=== PATIENT | male | born 1965 | race Two or more races ===

== ENCOUNTER 2020-04-20 09:22 | Inpatient (IN) | payer MEDICAID ==
[~2020-04-20] VITALS: Ht 167.6 cm; Wt 83.9 kg
--- NOTE | 2020-04-20 09:19 | Emergency Room Report ---
History of Present Illness General Source: Patient, EMS Present Illness HPI Patient is a 54-year-old male brought in by EMS after increased dizziness and body aches and chills. Patient had been recently dialyzed. Denies any prior history of diabetes. History of end-stage renal disease but does currently make urine. Had prior history of cardiac disease but does not know what medications he takes. Also has hypertension for which he takes Norvasc. Prehospital EKG showed sinus tachycardia with a rate approximately 100.Patient states that he had not previously had any heart attack. Normally is dialyzed Sunday. Reportedly still makes urine. Onset of symptoms while eating at [employer]. Denies any abdominal pain or vomiting. Allergies: Coded Allergies: No Known Allergies (Unverified , 04/20/20) Patient History Past Medical History: see triage record Reviewed Nursing Documentation: PMH: Agreed; PSxH: Agreed Review of Systems All Other Systems: negative except mentioned in HPI Physical Exam Sp02 EP Interpretation: reviewed, normal General Appearance: normal inspection, well appearing, no apparent distress, alert, GCS 15 Head: atraumatic ENT: normal ENT inspection, hearing grossly normal, normal voice Neck: normal inspection, full range of motion, supple, no bony tend Respiratory: normal inspection, lungs clear, normal breath sounds, no respiratory distress, no retraction, no wheezing Cardiovascular #1: regular rate, rhythm, no edema Gastrointestinal: normal inspection, normal bowel sounds, non tender, soft, no guarding, no hernia Genitourinary: no CVA tenderness Musculoskeletal: normal inspection, back normal, normal range of motion Neurologic: alert, motor strength/tone normal, 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 Dif ferential diagnosis include was not limited to volume depletion, electrolyte abnormality, myocardial infarction, among others. Because of complexity of patient's case laboratory tests and imaging studies were ordered. EKG interpreted by me showed normal sinus rhythm with a rate of 80 ST depression in inferior leads no acute ST elevation was noted. Patient was given aspirin. Blood pressure was adequately controlled. Chest x-ray 1 view interpreted by me shows slight cardiomegaly with no definite infiltrate. Patient's coronavirus antigen test was negative.Patient's case was discussed with Dr. Miguel Son for admission due to abnormal EKG findings. Labs Test 04/20/20 09:36 04/20/20 09:40 White Blood Count 11.5 K/UL (4.8-10.8) Red Blood Count 3.56 M/UL (4.70-6.10) Hemoglobin 11.2 G/DL (14.2-18.0) Hematocrit 33.7 % (42.0-52.0) Mean Corpuscular Volume 95 FL (80-99) Mean Corpuscular Hemoglobin 31.4 PG (27.0-31.0) Mean Corpuscular Hemoglobin Concent 33.2 G/DL (32.0-36.0) Red Cell Distribution Width 12.2 % (11.6-14.8) Platelet Count 288 K/UL (150-450) Mean Platelet Volume 6.3 FL (6.5-10.1) Neutrophils (%) (Auto) 79.2 % (45.0-75.0) Lymphocytes (%) (Auto) 10.4 % (20.0-45.0) Monocytes (%) (Auto) 8.6 % (1.0-10.0) Eosinophils (%) (Auto) 1.0 % (0.0-3.0) Basophils (%) (Auto) 0.8 % (0.0-2.0) Prothrombin Time 10.2 SEC (9.30-11.50) Prothromb Time International Ratio 0.9 (0.9-1.1) Activated Partial Thromboplast Time 28 SEC (23-33) Urine Color Pale yellow Urine Appearance Slightly cloudy Urine pH 8 (4.5-8.0) Urine Specific [place] 1.010 (1.005-1.035) Urine Protein 3+ (NEGATIVE) Urine Glucose (UA) 3+ (NEGATIVE) Urine Ketones Negative (NEGATIVE) Urine Blood 2+ (NEGATIVE) Urine Nitrite Negative (NEGATIVE) Urine Bilirubin Negative (NEGATIVE) Urine Urobilinogen Normal MG/DL (0.0-1.0) Urine Leukocyte Esterase 1+ (NEGATIVE) Urine RBC 2-4 /HPF (0 - 0) Urine WBC 10-15 /HPF (0 - 0) Urine Squamous Epithelial Cells Occasional /LPF Urine Bacteria Few /HPF (NONE) Sodium Level 131 MMOL/L (136-145) Potassium Level 3.6 MMOL/L (3.5-5.1) Chloride Level 94 MMOL/L (98-107) Carbon Dioxide Level 26 MMOL/L (21-32) Anion Gap 11 mmol/L (5-15) Blood Urea Nitrogen 32 mg/dL (7-18) Creatinine 7.5 MG/DL (0.55-1.30) Estimat Glomerular Filtration Rate 7.6 mL/min (>60) Glucose Level 119 MG/DL (74-106) Calcium Level 9.3 MG/DL (8.5-10.1) Total Bilirubin 0.3 MG/DL (0.2-1.0) Aspartate Amino Transf (AST/SGOT) 28 U/L (15-37) Alanine Aminotransferase (ALT/SGPT) 40 U/L (12-78) Alkaline Phosphatase 94 U/L (46-116) Troponin I 0.011 ng/mL (0.000-0.056) C-Reactive Protein, Quantitative 1.0 mg/dL (0.00-0.90) Total Protein 8.5 G/DL (6.4-8.2) Albumin 4.6 G/DL (3.4-5.0) Globulin 3.9 g/dL Albumin/Globulin Ratio 1.2 (1.0-2.7) Thyroid Stimulating Hormone (TSH) 2.027 uiU/mL (0.358-3.740) Status: improved Disposition: ADMITTED INPATIENT Condition: Stable Eulogio Duong MD Apr 20, 2020 09:19
[2020-04-20 09:27] VITALS: BP 145/83
--- NOTE | 2020-04-20 09:40 | NUR ---
Patient reported to the ER with c/o not feeling well. He had dialysis Tx completed this morning then proceeded to have breakfast at [employer]. While at restaurant, he reported that he began " not feeling well", called EMS and was brought to the ER for further assessment. Fistula to right upper arm- wrapped. Positive bruit and thrill. AAOX4. Independently ambulatory. Continent of B/B. Urine and blood sample collected and sent to the lab
[2020-04-20 10:06] LABS: BILIRUBIN, URINE NEGATIVE (NEGATIVE); COLOR,URINE PALE YELLOW; GLUCOSE, URINE (UA) 3+ (NEGATIVE); KETONES,URINE NEGATIVE (NEGATIVE); LEUKOCYTE ESTERASE ,URINE 1+ (NEGATIVE); NITRITE,URINE NEGATIVE (NEGATIVE); PH,URINE 8 (4.5-8.0); PROTEIN,URINE 3+ (NEGATIVE); UROBILINOGEN,URINE NORMAL MG/DL (0.0-1.0)
[2020-04-20 10:10] LABS: APPEARANCE,URINE SLIGHTLY CLOUDY
[2020-04-20 10:13] LABS: BASOPHILS % (AUTO) 0.8 % (0.0-2.0); HEMATOCRIT 33.7 % (42.0-52.0); HEMOGLOBIN 11.2 G/DL (14.2-18.0); LYMPHOCYTES % (AUTO) 10.4 % (20.0-45.0); MEAN CORPUSCULAR VOLUME 95 FL (80-99); MONOCYTES % (AUTO) 8.6 % (1.0-10.0); NEUTROPHILS % (AUTO) 79.2 % (45.0-75.0); PLATELET COUNT 288 K/UL (150-450); RED BLOOD COUNT 3.56 M/UL (4.70-6.10); RED CELL DISTRIBUTION WIDTH 12.2 % (11.6-14.8); WHITE BLOOD COUNT 11.5 K/UL (4.8-10.8)
[2020-04-20 10:15] LABS: INR 0.9 (0.9-1.1)
[2020-04-20 10:28] VITALS: BP 145/63
[2020-04-20] MEDS ORDERED: cefTRIAXone 1 GM in NS 55 ML IVPB ONE (10:30)
[2020-04-20 10:37] LABS: ALBUMIN 4.6 G/DL (3.4-5.0); ALBUMIN/GLOBULIN RATIO 1.2 (1.0-2.7); BILIRUBIN,TOTAL 0.3 MG/DL (0.2-1.0); CREATININE 7.5 MG/DL (0.55-1.30); POTASSIUM 3.6 MMOL/L (3.5-5.1)
[2020-04-20 10:57] LABS: CALCIUM 9.3 MG/DL (8.5-10.1)
[2020-04-20 12:45] VITALS: BP 149/81
--- NOTE | 2020-04-20 12:52 | NUR ---
pt nauseous, denies cp, pt medicated. called report to laquita crook. pt stable on cardiac/o2 monitor.
[2020-04-20 13:43] VITALS: BP 157/79
--- NOTE | 2020-04-20 14:49 | Consultation ---
Consult Note Consult Note I am asked to evaluate the patient at the request of Dr. Son for dialysis management Source: Patient, EMS Patient is a 54-year-old male brought in by EMS after increased dizziness and body aches and chills. Patient had been recently dialyzed. Denies any prior history of diabetes. History of end-stage renal disease but does currently make urine. Had prior history of cardiac disease but does not know what medications he takes. Also has hypertension for which he takes Norvasc. Prehospital EKG showed sinus tachycardia with a rate approximately 100.Patient states that he had not previously had any heart attack. Normally is dialyzed Sunday. Reportedly still makes urine. Onset of symptoms while eating at [employer]. Denies any abdominal pain or vomiting. Allergies: No Known Allergies (Unverified , 04/20/20) PHYSICAL EXAMINATION: VITAL SIGNS: Blood pressure 137/83, pulse is 90, respirations 18, and he is afebrile. HEAD AND NECK: Shows no JVD. LUNGS: Clear. CARDIOVASCULAR: Shows regular S1 and S2 with no gallop or murmur. ABDOMEN: Soft. EXTREMITIES: No pitting edema. LABORATORY DATA: Labs show sodium 131, potassium 3.6, BUN of 32, creatinine 7.5, glucose of 119. The most recent laboratories show sodium 135, potassium 5.8. His troponins are negative x2. BNP is 8528. Assessment/Plan UTI ESRD Hypertension Anemia Blood pressure management 2D echocardiogram Antibiotics Dialysis as needed Per orders Braulio Humphrey MD Apr 20, 2020 14:48
--- NOTE | 2020-04-20 14:59 | History and Physical Report ---
DATE OF ADMISSION: 04/20/2020 TIME SEEN: 1 p.m. CONSULTANTS: 1. Edward Silva MD 2. Sundeep Slaughter MD. 3. Braulio Humphrey MD. CHIEF COMPLAINT: Chills, near syncope, UTI, palpitations. BRIEF HISTORY: This is a 54-year-old male who lives at home presented with above-mentioned diagnosis for couple days, came to [facility], diagnosed with above, admitted to telemetry. Currently calm in bed, no complaint. No chest pain. No shortness of breath. No nausea, vomiting, or diarrhea. PAST MEDICAL HISTORY: Include ESRD, hypertension. PAST SURGICAL HISTORY: Shunt. MEDICATIONS: Zofran, ceftriaxone, aspirin. ALLERGIES: Denies. SOCIAL HISTORY: No smoking. No alcohol. No intravenous drug abuse. FAMILY HISTORY: Noncontributory. PHYSICAL EXAMINATION: GENERAL: Calm in bed, oriented x3, no acute distress. VITAL SIGNS: Temperature 98 degrees, pulse 82, respiratory rate 18, blood pressure 149/81. CARDIOVASCULAR: No murmur. LUNGS: Distant and clear. ABDOMEN: Bowel sounds distant. Nontender and nondistended. EXTREMITIES: No cyanosis, clubbing, or edema. NEUROLOGIC: The patient moves all extremities, slightly weak. LABORATORY AND DIAGNOSTIC DATA: Labs at this time show white count 11.5, hemoglobin and hematocrit 11/33, platelets 288. Sodium 131, chloride 94, BUN and creatinine 32/7.5, glucose 119. Troponin 0.011, otherwise normal. BMP, INR 0.9. Urinalysis show 2+ blood, 1+ leukocyte esterase. ASSESSMENT: 1. Chills. 2. Near syncope. 3. Palpitation. 4. Anemia. 5. ESRD. 6. Hyponatremia. 7. UTI. 8. Hypertension. PLAN: 1. Resume home medications. 2. Antibiotics per Infectious Diseases. 3. Troponin q.8h. x3. 4. EKG in a.m. 5. Cardiology, Nephrology, ID followup. 6. CBC and BMP in the morning. 7. We will continue to follow the patient. Miguel Son D.O. DR: Esdras JOB#: [id number] CC:
--- NOTE | 2020-04-20 15:49 | Diagnostic Imaging Report ---
Indication: Shortness of breath Technique: One view of the chest Comparison: none Findings: Inspiration is suboptimal. No definite infiltrates, effusions, or congestion. The heart is borderline enlarged. Impression: No acute process. Borderline cardiomegaly
[2020-04-20 16:00] VITALS: BP 157/91
[2020-04-20] MEDS: Docusate 100mg cap ORAL SCH (17:52)
--- NOTE | 2020-04-20 19:32 | NUR ---
NURSE HAND-OFF REPORT: Important Events on Shift:[New admission. Patient shows no signs of distress] Patient Status: [Full code] Diet: [Renal] Pending Orders: [] Pending Results/Labs:[] Pending MD notification:[] Latest Vital Signs: Temperature 97.3 , Pulse 78 , B/P 157 /91 , Respiratory Rate 20 , O2 SAT 99 , Room Air, O2 Flow Rate . Vital Sign Comment: [] EKG Rhythm: Sinus Rhythm Rhythm change?: N MD Notified?: - MD Response: Latest [place] Fall Score: 20 Fall Risk: Low Risk Safety Measures: Call light Within Reach, Bed Alarm Zone 2, Side Rails Side Rails x2, Bed position Low and Locked. Fall Precautions: Patient Fall Education Report given to [YANDY Aguayo].
--- NOTE | 2020-04-20 19:53 | NUR ---
NURSE NOTES: received patient alert oriented resting comfortable in bed with no signs of distress. assessment initiated. discussed plan of care. call watkins within reach, will continue to monitor.
[2020-04-20 20:00] VITALS: BP 145/82
[2020-04-21] VITALS: BP 132/73
[2020-04-21 04:00] VITALS: BP 130/77
--- NOTE | 2020-04-21 04:00 | NUR ---
NURSE NOTES: patient resting comfortable in bed with no signs of distress. call watkins within reach, will continue to monitor.
[2020-04-21 06:48] LABS: BASOPHILS % (AUTO) 0.9 % (0.0-2.0); EOSINOPHILS % (AUTO) 2.4 % (0.0-3.0); HEMATOCRIT 32.6 % (42.0-52.0); LYMPHOCYTES % (AUTO) 21.3 % (20.0-45.0); MEAN CORPUSCULAR VOLUME 95 FL (80-99); MONOCYTES % (AUTO) 10.7 % (1.0-10.0); NEUTROPHILS % (AUTO) 64.7 % (45.0-75.0); PLATELET COUNT 283 K/UL (150-450); RED BLOOD COUNT 3.42 M/UL (4.70-6.10); RED CELL DISTRIBUTION WIDTH 11.8 % (11.6-14.8); WHITE BLOOD COUNT 8.5 K/UL (4.8-10.8)
--- NOTE | 2020-04-21 06:57 | NUR ---
NURSE HAND-OFF REPORT: Important Events on Shift:[] Patient Status: [] Diet: [] Pending Orders: [] Pending Results/Labs:[] Pending MD notification:[] Latest Vital Signs: Temperature 97.7 , Pulse 70 , B/P 130 /77 , Respiratory Rate 18 , O2 SAT 97 , Room Air, O2 Flow Rate . Vital Sign Comment: [] EKG Rhythm: Sinus Rhythm Rhythm change?: N MD Notified?: - MD Response: Latest [place]ia Fall Score: 20 Fall Risk: Low Risk Safety Measures: Call light Within Reach, Bed Alarm Zone 2, Side Rails Side Rails x2, Bed position Low and Locked. Fall Precautions: Patient Fall Education Report given to [].
[2020-04-21 07:08] LABS: % IRON SATURATION 81 % (15-50); IRON 183 ug/dL (50-175); TOTAL IRON BINDING CAPACITY 225 ug/dL (250-450)
[2020-04-21 07:10] LABS: GAMMA GLUTAMYL TRANSPEPTIDASE 88 U/L (5-85); LACTATE DEHYDROGENASE 181 U/L (81-234); PHOSPHORUS 6.4 MG/DL (2.5-4.9)
[2020-04-21 07:19] LABS: ALANINE AMINOTRANSFERASE 34 U/L (12-78); ALBUMIN 4.1 G/DL (3.4-5.0); ALBUMIN/GLOBULIN RATIO 1.2 (1.0-2.7); ALKALINE PHOSPHATASE 82 U/L (46-116); ANION GAP 9 mmol/L (5-15); ASPARTATE AMINO TRANSFERASE 26 U/L (15-37); BILIRUBIN,TOTAL 0.4 MG/DL (0.2-1.0); BLOOD UREA NITROGEN 57 mg/dL (7-18); CALCIUM 8.5 MG/DL (8.5-10.1); CARBON DIOXIDE 26 MMOL/L (21-32); CHLORIDE 101 MMOL/L (98-107); CHOLESTEROL 109 MG/DL (< 200); FERRITIN 1234 NG/ML (8-388); HDL CHOLESTEROL 40 MG/DL (40-60); POTASSIUM 5.7 MMOL/L (3.5-5.1); SODIUM 135 MMOL/L (136-145); TRIGLYCERIDES 192 MG/DL (30-150)
[2020-04-21 08:22] VITALS: BP 141/78
[2020-04-21] MEDS ORDERED: Sodium Polystyrene Sulfonate 15gm Powder ORAL SCH (08:30)
--- NOTE | 2020-04-21 08:47 | Consultation ---
History of Present Illness General Chief Complaint: General Complaint Reason for Consultation: UTI Present Illness HPI Mr. Fish is a 54 yo male with PMHx of ESRD on HD and HTN who presented to the ED on 04/20/20 with bodyaches and chills. His symptoms are much better today. He reports that he could feel his heart beating and felt as if he was about to fiant. In the ED he was found to have mild leukocytosis of 11. Today WBCs 8. He had a UA concerning for UTI. He denies fever, N/V/D, cough, SOB Dysuria and abdominal pain. ID was consulted for UTI PMHx/PSHx ESRD on HD HTN SocHx No E/T/D FamHx Not Contributory Allergies: Coded Allergies: No Known Allergies (Unverified , 04/20/20) Patient History Healthcare decision maker Resuscitation status Advanced Directive on File Review of Systems ROS Narrative 12 point ROS negative except as noted in the HPI Physical Exam Last 24 Hour Vital Signs Date Time Temp Pulse Resp B/P (MAP) Pulse Ox O2 Delivery O2 Flow Rate FiO2 04/21/20 08:24 74 04/21/20 08:22 96.7 78 20 141/78 (99) 97 04/21/20 04:00 70 04/21/20 04:00 97.7 77 18 130/77 (94) 97 04/21/20 00:00 77 04/21/20 00:00 98.1 83 18 132/73 (92) 96 04/20/20 21:00 Room Air 04/20/20 20:00 82 04/20/20 20:00 98.1 82 18 145/82 (103) 98 04/20/20 16:00 97.3 82 20 157/91 (113) 99 04/20/20 16:00 78 04/20/20 15:36 83 157/79 04/20/20 13:43 98.1 83 18 157/79 (105) 98 04/20/20 13:43 Room Air 04/20/20 13:14 90 04/20/20 12:45 82 18 149/81 100 Room Air 04/20/20 10:28 95 18 145/63 100 Room Air 04/20/20 09:27 91 17 Room Air 100 04/20/20 09:27 98.0 91 17 145/83 100 Room Air 04/20/20 09:16 98.4 110 18 166/97 (120) 98 Room Air Intake and Output 04/20/20 04/21/20 19:00 07:00 Intake Total 200 ml 220 ml Balance 200 ml 220 ml Intake Oral 200 ml 220 ml # Voids 2 6 Laboratory Tests Test 04/20/20 09:36 04/20/20 09:40 04/20/20 13:40 04/21/20 04:00 White Blood Count 11.5 K/UL (4.8-10.8) H Red Blood Count 3.56 M/UL (4.70-6.10) L Hemoglobin 11.2 G/DL (14.2-18.0) L Hematocrit 33.7 % (42.0-52.0) L Mean Corpuscular Volume 95 FL (80-99) Mean Corpuscular Hemoglobin 31.4 PG (27.0-31.0) H Mean Corpuscular Hemoglobin Concent 33.2 G/DL (32.0-36.0) Red Cell Distribution Width 12.2 % (11.6-14.8) Platelet Count 288 K/UL (150-450) Mean Platelet Volume 6.3 FL (6.5-10.1) L Neutrophils (%) (Auto) 79.2 % (45.0-75.0) H Lymphocytes (%) (Auto) 10.4 % (20.0-45.0) L Monocytes (%) (Auto) 8.6 % (1.0-10.0) Eosinophils (%) (Auto) 1.0 % (0.0-3.0) Basophils (%) (Auto) 0.8 % (0.0-2.0) Prothrombin Time 10.2 SEC (9.30-11.50) Prothromb Time International Ratio 0.9 (0.9-1.1) Activated Partial Thromboplast Time 28 SEC (23-33) Urine Color Pale yellow Urine Appearance Slightly cloudy Urine pH 8 (4.5-8.0) Urine Specific [place] 1.010 (1.005-1.035) Urine Protein 3+ (NEGATIVE) H Urine Glucose (UA) 3+ (NEGATIVE) H Urine Ketones Negative (NEGATIVE) Urine Blood 2+ (NEGATIVE) H Urine Nitrite Negative (NEGATIVE) Urine Bilirubin Negative (NEGATIVE) Urine Urobilinogen Normal MG/DL (0.0-1.0) Urine Leukocyte Esterase 1+ (NEGATIVE) H Urine RBC 2-4 /HPF (0 - 0) H Urine WBC 10-15 /HPF (0 - 0) H Urine Squamous Epithelial Cells Occasional /LPF Urine Bacteria Few /HPF (NONE) Sodium Level 131 MMOL/L (136-145) L 135 MMOL/L (136-145) L Potassium Level 3.6 MMOL/L (3.5-5.1) 5.7 MMOL/L (3.5-5.1) #H Chloride Level 94 MMOL/L (98-107) L 101 MMOL/L (98-107) Carbon Dioxide Level 26 MMOL/L (21-32) 26 MMOL/L (21-32) Anion Gap 11 mmol/L (5-15) 9 mmol/L (5-15) Blood Urea Nitrogen 32 mg/dL (7-18) H 57 mg/dL (7-18) H Creatinine 7.5 MG/DL (0.55-1.30) H 11.0 MG/DL (0.55-1.30) H Estimat Glomerular Filtration Rate 7.6 mL/min (>60) 4.9 mL/min (>60) Glucose Level 119 MG/DL (74-106) H 89 MG/DL (74-106) Calcium Level 9.3 MG/DL (8.5-10.1) 8.5 MG/DL (8.5-10.1) Total Bilirubin 0.3 MG/DL (0.2-1.0) 0.4 MG/DL (0.2-1.0) Aspartate Amino Transf (AST/SGOT) 28 U/L (15-37) 26 U/L (15-37) Alanine Aminotransferase (ALT/SGPT) 40 U/L (12-78) 34 U/L (12-78) Alkaline Phosphatase 94 U/L (46-116) 82 U/L (46-116) Troponin I 0.011 ng/mL (0.000-0.056) C-Reactive Protein, Quantitative 1.0 mg/dL (0.00-0.90) H 0.7 mg/dL (0.00-0.90) Total Protein 8.5 G/DL (6.4-8.2) H 7.6 G/DL (6.4-8.2) Albumin 4.6 G/DL (3.4-5.0) 4.1 G/DL (3.4-5.0) Globulin 3.9 g/dL 3.5 g/dL Albumin/Globulin Ratio 1.2 (1.0-2.7) 1.2 (1.0-2.7) Thyroid Stimulating Hormone (TSH) 2.027 uiU/mL (0.358-3.740) POC Whole Blood Glucose Pending Urine Opiates Screen Negative (NEGATIVE) Urine Barbiturates Screen Negative (NEGATIVE) Phencyclidine (PCP) Screen Negative (NEGATIVE) Urine Amphetamines Screen Negative (NEGATIVE) Urine Benzodiazepines Screen Negative (NEGATIVE) Urine Cocaine Screen Negative (NEGATIVE) Urine Marijuana (THC) Screen Negative (NEGATIVE) Hemoglobin A1c 5.6 % (4.3-6.0) Lactic Acid Level 0.80 mmol/L (0.4-2.0) Uric Acid 5.9 MG/DL (2.6-7.2) Phosphorus Level 6.4 MG/DL (2.5-4.9) H Magnesium Level 2.3 MG/DL (1.8-2.4) Iron Level 183 ug/dL (50-175) H Total Iron Binding Capacity 225 ug/dL (250-450) L Percent Iron Saturation 81 % (15-50) H Unsaturated Iron Binding 42 ug/dL (112-346) L Ferritin 1234 NG/ML (8-388) H Gamma Glutamyl Transpeptidase 88 U/L (5-85) H Lactate Dehydrogenase 181 U/L (81-234) Pro-B-Type Natriuretic Peptide 8528 pg/mL (0-125) H Triglycerides Level 192 MG/DL (30-150) H Cholesterol Level 109 MG/DL (< 200) LDL Cholesterol 43 mg/dL (<100) HDL Cholesterol 40 MG/DL (40-60) Cholesterol/HDL Ratio 2.7 (3.3-4.4) L Vitamin B12 Level 545 PG/ML (193-986) Folate 23.1 NG/ML (8.6-58.9) Test 04/21/20 06:15 White Blood Count 8.5 K/UL (4.8-10.8) Red Blood Count 3.42 M/UL (4.70-6.10) L Hemoglobin 11.0 G/DL (14.2-18.0) L Hematocrit 32.6 % (42.0-52.0) L Mean Corpuscular Volume 95 FL (80-99) Mean Corpuscular Hemoglobin 32.2 PG (27.0-31.0) H Mean Corpuscular Hemoglobin Concent 33.7 G/DL (32.0-36.0) Red Cell Distribution Width 11.8 % (11.6-14.8) Platelet Count 283 K/UL (150-450) Mean Platelet Volume 6.1 FL (6.5-10.1) L Neutrophils (%) (Auto) 64.7 % (45.0-75.0) Lymphocytes (%) (Auto) 21.3 % (20.0-45.0) Monocytes (%) (Auto) 10.7 % (1.0-10.0) H Eosinophils (%) (Auto) 2.4 % (0.0-3.0) Basophils (%) (Auto) 0.9 % (0.0-2.0) Microbiology Date/Time Source Procedure Growth Status 04/20/20 09:36 Nasopharynx SARS-CoV-2 Antigen (Rapid)(MIROSLAVA) - Final Complete Height (Feet): 5 Height (Inches): 6.00 Weight (Pounds): 185 Medications Current Medications Medications (Trade) Dose Ordered Sig/Shweta Route PRN Reason Start Time Stop Time Status Last Admin Dose Admin Acetaminophen (Tylenol) 650 mg Q4H PRN ORAL pain 04/20/20 15:00 05/20/20 14:59 Amlodipine Besylate (Norvasc) 10 mg DAILY ORAL 04/20/20 15:00 05/20/20 14:59 04/20/20 15:36 Clonidine HCl (Catapres Tab) 0.1 mg Q4H PRN ORAL For BP over 160 systolic 04/20/20 15:00 07/19/20 14:59 Docusate Sodium (Colace) 100 mg THREE TIMES A DAY ORAL 04/20/20 18:00 05/20/20 17:59 04/20/20 17:52 Ondansetron HCl (Zofran) 4 mg Q6H PRN IVP Nausea & Vomiting 04/20/20 15:00 05/20/20 14:59 Pantoprazole (Protonix) 40 mg EVERY 12 HOURS ORAL 04/20/20 21:00 05/20/20 20:59 04/20/20 20:58 Sodium Polystyrene Sulfonate (Kayexalate) 30 gm ONCE ORAL 04/21/20 08:30 04/21/20 10:00 Objective Narrative Gen: NAD HEENT: NCAT, MMM, EOMI, No scleral icterus NECK Supple, No LAD HEART: RRR, S1, S2, Left arm AVF (Intact, No E/P) Pulm: CTAB, No W No accessory mescle use Abd: Soft, NT, ND, + BS : Differed Neuro: Awake, Alert, Moving arms and legs SKIN: Exposed skin normal in color no rash noted Assessment/Plan Assessment/Plan: 54 yo male with PMHx of ESRD on HD and HTN who presented to the ED on 04/20/20 with bodyaches and chills. Sepsis UTI Leukocytosis No fever ESRD on HD HTN PLAN - Continue Ceftriaxone #2/3 - f/u Cultures - Monitor CBC and Temps Thank you for this consult. [facility] will continue to follow Mr. Fish with you dueing this hospitalization. Wale Junior MD Apr 21, 2020 08:47
[2020-04-21] MEDS: Docusate 100mg cap ORAL SCH ×3 (09:16→18:00)
--- NOTE | 2020-04-21 09:47 | General Progress Note ---
Subjective Constitutional: Reports: weakness Allergies: Coded Allergies: No Known Allergies (Unverified , 04/20/20) All Systems: reviewed and negative except above Subjective calm in bed Objective Last 24 Hour Vital Signs Date Time Temp Pulse Resp B/P (MAP) Pulse Ox O2 Delivery O2 Flow Rate FiO2 04/21/20 09:17 78 141/79 04/21/20 08:24 74 04/21/20 08:22 96.7 78 20 141/78 (99) 97 04/21/20 04:00 70 04/21/20 04:00 97.7 77 18 130/77 (94) 97 04/21/20 00:00 77 04/21/20 00:00 98.1 83 18 132/73 (92) 96 04/20/20 21:00 Room Air 04/20/20 20:00 82 04/20/20 20:00 98.1 82 18 145/82 (103) 98 04/20/20 16:00 97.3 82 20 157/91 (113) 99 04/20/20 16:00 78 04/20/20 15:36 83 157/79 04/20/20 13:43 98.1 83 18 157/79 (105) 98 04/20/20 13:43 Room Air 04/20/20 13:14 90 04/20/20 12:45 82 18 149/81 100 Room Air 04/20/20 10:28 95 18 145/63 100 Room Air Intake and Output 04/20/20 04/21/20 19:00 07:00 Intake Total 200 ml 220 ml Balance 200 ml 220 ml Intake Oral 200 ml 220 ml # Voids 2 6 Laboratory Tests 04/20/20 13:40: Urine Opiates Screen Negative, Urine Barbiturates Screen Negative, Phencyclidine (PCP) Screen Negative, Urine Amphetamines Screen Negative, Urine Benzodiazepines Screen Negative, Urine Cocaine Screen Negative, Urine Marijuana (THC) Screen Negative 04/21/20 04:00: Sodium Level 135L, Potassium Level 5.7#H, Chloride Level 101, Carbon Dioxide Level 26, Anion Gap 9, Blood Urea Nitrogen 57H, Creatinine 11.0H, Estimat Glomerular Filtration Rate 4.9, Glucose Level 89, Hemoglobin A1c 5.6, Lactic Acid Level 0.80, Uric Acid 5.9, Calcium Level 8.5, Phosphorus Level 6.4H, Magnesium Level 2.3, Iron Level 183H, Total Iron Binding Capacity 225L, Percent Iron Saturation 81H, Unsaturated Iron Binding 42L, Ferritin 1234H, Total Bilirubin 0.4, Gamma Glutamyl Transpeptidase 88H, Aspartate Amino Transf (AST/SGOT) 26, Alanine Aminotransferase (ALT/SGPT) 34, Alkaline Phosphatase 82, Lactate Dehydrogenase 181, C-Reactive Protein, Quantitative 0.7, Pro-B-Type Natriuretic Peptide 8528H, Total Protein 7.6, Albumin 4.1, Globulin 3.5, Albumin/Globulin Ratio 1.2, Triglycerides Level 192H, Cholesterol Level 109, LDL Cholesterol 43, HDL Cholesterol 40, Cholesterol/HDL Ratio 2.7L, Vitamin B12 Level 545, Folate 23.1 04/21/20 06:15: White Blood Count 8.5, Red Blood Count 3.42L, Hemoglobin 11.0L, Hematocrit 32.6L , Mean Corpuscular Volume 95, Mean Corpuscular Hemoglobin 32.2H, Mean Corpuscular Hemoglobin Concent 33.7, Red Cell Distribution Width 11.8, Platelet Count 283, Mean Platelet Volume 6.1L, Neutrophils (%) (Auto) 64.7, Lymphocytes (%) (Auto) 21.3, Monocytes (%) (Auto) 10.7H, Eosinophils (%) (Auto) 2.4, Basophils (%) (Auto) 0.9 Height (Feet): 5 Height (Inches): 6.00 Weight (Pounds): 185 General Appearance: lethargic EENT: normal ENT inspection Neck: normal alignment Cardiovascular: normal peripheral pulses, normal rate, regular rhythm Respiratory/Chest: chest wall non-tender, lungs clear, normal breath sounds Abdomen: normal bowel sounds, non tender, soft Extremities: normal inspection Edema: no edema noted Arm (L), no edema noted Arm (R), no edema noted Leg (L), no edema noted Leg (R), no edema noted Pedal (L), no edema noted Pedal (R), no edema noted Generalized Neurologic: responsive, motor weakness Skin: normal pigmentation, warm/dry Assessment/Plan Problem List: (1) ESRD (end stage renal disease) ICD Codes: N18.6 - End stage renal disease SNOMED: 94239238 (2) Anemia ICD Codes: D64.9 - Anemia, unspecified SNOMED: 169084373 (3) HTN (hypertension) ICD Codes: I10 - Essential (primary) hypertension SNOMED: 81286452 (4) Urinary tract infection ICD Codes: N39.0 - Urinary tract infection, site not specified SNOMED: 22248728 (5) Weakness ICD Codes: R53.1 - Weakness SNOMED: 64226682 Status: unchanged Assessment/Plan: pt diet abx dialysis cbc bmp am Miguel Son DO Apr 21, 2020 09:47
--- NOTE | 2020-04-21 10:06 | NUR ---
Received report from credit risk officer RN. Pt. in bed, awake alert oriented, [place] speaking, able to communicate needs. call light w/in reach, instructed to call if needed assistance. will continue to monitor.
[2020-04-21] MEDS ORDERED: ISOSORBIDE MONO30 M1 PO (10:08)
[2020-04-21] MEDS ORDERED: CALCIUM ACETAT667 M1 PO (10:08)
[2020-04-21] MEDS ORDERED: RENA-VITE RX T1 EAC1 PO (10:08)
[2020-04-21] MEDS ORDERED: AMLODIPINE BESY10 MG ORAL (10:08)
[2020-04-21] MEDS ORDERED: ATORVASTATIN CA20 MG ORAL (10:08)
--- NOTE | 2020-04-21 10:20 | Nephrology Progress Note ---
Assessment/Plan Problem List: (1) ESRD (end stage renal disease) (2) HTN (hypertension) (3) Urinary tract infection (4) Anemia Assessment UTI ESRD Hypertension Anemia Plan April 21: Patient seen. Labs reviewed. Potassium 5.7. Kayexalate given. Patient receives dialysis Sunday however dialysis for today is ordered. Blood pressure appears to be under control. Continue per consultants. Blood pressure management 2D echocardiogram Antibiotics Dialysis as needed Per orders Subjective ROS Limited/Unobtainable: No Constitutional: Reports: malaise Objective Objective Last 24 Hour Vital Signs Date Time Temp Pulse Resp B/P (MAP) Pulse Ox O2 Delivery O2 Flow Rate FiO2 04/21/20 10:00 Room Air 04/21/20 09:17 78 141/79 04/21/20 08:24 74 04/21/20 08:22 96.7 78 20 141/78 (99) 97 04/21/20 04:00 70 04/21/20 04:00 97.7 77 18 130/77 (94) 97 04/21/20 00:00 77 04/21/20 00:00 98.1 83 18 132/73 (92) 96 04/20/20 21:00 Room Air 04/20/20 20:00 82 04/20/20 20:00 98.1 82 18 145/82 (103) 98 04/20/20 16:00 97.3 82 20 157/91 (113) 99 04/20/20 16:00 78 04/20/20 15:36 83 157/79 04/20/20 13:43 98.1 83 18 157/79 (105) 98 04/20/20 13:43 Room Air 04/20/20 13:14 90 04/20/20 12:45 82 18 149/81 100 Room Air 04/20/20 10:28 95 18 145/63 100 Room Air Intake and Output 04/20/20 04/21/20 19:00 07:00 Intake Total 200 ml 220 ml Balance 200 ml 220 ml Intake Oral 200 ml 220 ml # Voids 2 6 Current Medications Medications (Trade) Dose Ordered Sig/Shweta Route PRN Reason Start Time Stop Time Status Last Admin Dose Admin Acetaminophen (Tylenol) 650 mg Q4H PRN ORAL pain 04/20/20 15:00 05/20/20 14:59 Amlodipine Besylate (Norvasc) 10 mg DAILY ORAL 04/20/20 15:00 05/20/20 14:59 04/21/20 09:17 Clonidine HCl (Catapres Tab) 0.1 mg Q4H PRN ORAL For BP over 160 systolic 04/20/20 15:00 07/19/20 14:59 Docusate Sodium (Colace) 100 mg THREE TIMES A DAY ORAL 04/20/20 18:00 05/20/20 17:59 04/21/20 09:16 Ondansetron HCl (Zofran) 4 mg Q6H PRN IVP Nausea & Vomiting 04/20/20 15:00 05/20/20 14:59 Pantoprazole (Protonix) 40 mg EVERY 12 HOURS ORAL 04/20/20 21:00 05/20/20 20:59 04/21/20 09:16 Laboratory Tests 04/20/20 13:40: Urine Opiates Screen Negative, Urine Barbiturates Screen Negative, Phencyclidine (PCP) Screen Negative, Urine Amphetamines Screen Negative, Urine Benzodiazepines Screen Negative, Urine Cocaine Screen Negative, Urine Marijuana (THC) Screen Negative 04/21/20 04:00: Sodium Level 135L, Potassium Level 5.7#H, Chloride Level 101, Carbon Dioxide Level 26, Anion Gap 9, Blood Urea Nitrogen 57H, Creatinine 11.0H, Estimat Glomerular Filtration Rate 4.9, Glucose Level 89, Hemoglobin A1c 5.6, Lactic Acid Level 0.80, Uric Acid 5.9, Calcium Level 8.5, Phosphorus Level 6.4H, Magnesium Level 2.3, Iron Level 183H, Total Iron Binding Capacity 225L, Percent Iron Saturation 81H, Unsaturated Iron Binding 42L, Ferritin 1234H, Total Bilirubin 0.4, Gamma Glutamyl Transpeptidase 88H, Aspartate Amino Transf (AST/SGOT) 26, Alanine Aminotransferase (ALT/SGPT) 34, Alkaline Phosphatase 82, Lactate Dehydrogenase 181, C-Reactive Protein, Quantitative 0.7, Pro-B-Type Natriuretic Peptide 8528H, Total Protein 7.6, Albumin 4.1, Globulin 3.5, Albumin/Globulin Ratio 1.2, Triglycerides Level 192H, Cholesterol Level 109, LDL Cholesterol 43, HDL Cholesterol 40, Cholesterol/HDL Ratio 2.7L, Vitamin B12 Level 545, Folate 23.1 04/21/20 06:15: White Blood Count 8.5, Red Blood Count 3.42L, Hemoglobin 11.0L, Hematocrit 32.6L , Mean Corpuscular Volume 95, Mean Corpuscular Hemoglobin 32.2H, Mean Corpu scular Hemoglobin Concent 33.7, Red Cell Distribution Width 11.8, Platelet Count 283, Mean Platelet Volume 6.1L, Neutrophils (%) (Auto) 64.7, Lymphocytes (%) (Auto) 21.3, Monocytes (%) (Auto) 10.7H, Eosinophils (%) (Auto) 2.4, Basophils (%) (Auto) 0.9 Height (Feet): 5 Height (Inches): 6.00 Weight (Pounds): 185 General Appearance: no apparent distress Cardiovascular: normal rate Respiratory/Chest: decreased breath sounds Abdomen: distended Extremities: other - Has left upper arm fistula Braulio Humphrey MD Apr 21, 2020 10:20
--- NOTE | 2020-04-21 11:05 | NUR ---
PT EVALUATION/DISCHARGE NOTE Patient seen for initial evaluation. Patient is independent with bed mobility, transfers and ambulation without an assistive device. Skilled inpatient PT intervention not warranted as patient is at baseline level of function and is independent with all ADLs. Patient discharged from PT, Yany KEBEDE notified. Addendum: 04/21/20 at 1313 by DUNCAN BRASHER PT Amended: Links added.
[2020-04-21 12:00] VITALS: BP 140/82
[2020-04-21] MEDS: cefTRIAXone 1 GM in D5W 55 ML IVPB SCH (12:09)
[2020-04-21 16:39] VITALS: BP 137/69
--- NOTE | 2020-04-21 16:40 | NUR ---
Patient made aware Md. ordered HD for today. consent signed. B/P stable. denies any complaints. denies chest pain.
--- NOTE | 2020-04-21 18:21 | NUR ---
Patient refused to take colace, already having diarrhea from Kayexalate.
--- NOTE | 2020-04-21 18:23 | NUR ---
HD nurse Won will be in at 11pm for dialysis tonite. consent signed by patient.
--- NOTE | 2020-04-21 19:45 | NUR ---
NURSE NOTES: received patient resting comfortable in bed. assessment initiated. patient show no signs of distress. discussed plan of care. per day RN, dialysis nurse will come tonight for patient. call watkins within reach, will continue to monitor.
--- NOTE | 2020-04-21 19:53 | NUR ---
NURSE NOTES: snacks given to patient.
[2020-04-21 20:00] VITALS: BP 152/89
[2020-04-22] VITALS: BP 157/91
--- NOTE | 2020-04-22 02:00 | NUR ---
NURSE NOTES: patient resting comfortable in bed receiving dialysis. no signs of distress. call watkins within reach, will continue to monitor. dialysis nurse at bedside.
[2020-04-22 04:00] VITALS: BP 151/84
[2020-04-22 06:44] LABS: BASOPHILS % (AUTO) 4.6 % (0.0-2.0); HEMOGLOBIN 10.7 G/DL (14.2-18.0); LYMPHOCYTES % (AUTO) 8.9 % (20.0-45.0); MEAN CORPUSCULAR VOLUME 98 FL (80-99); MONOCYTES % (AUTO) 5.6 % (1.0-10.0); NEUTROPHILS % (AUTO) 79.9 % (45.0-75.0); PLATELET COUNT 314 K/UL (150-450); RED BLOOD COUNT 3.37 M/UL (4.70-6.10); RED CELL DISTRIBUTION WIDTH 12.9 % (11.6-14.8); WHITE BLOOD COUNT 12.5 K/UL (4.8-10.8)
[2020-04-22 06:49] LABS: ALBUMIN 4.2 G/DL (3.4-5.0); ALBUMIN/GLOBULIN RATIO 1.3 (1.0-2.7); BILIRUBIN,TOTAL 0.2 MG/DL (0.2-1.0); CALCIUM 8.3 MG/DL (8.5-10.1); CREATININE 10.8 MG/DL (0.55-1.30); PHOSPHORUS 6.6 MG/DL (2.5-4.9); POTASSIUM 5.8 MMOL/L (3.5-5.1)
--- NOTE | 2020-04-22 07:23 | NUR ---
NURSE HAND-OFF REPORT: Important Events on Shift:[] Patient Status: [] Diet: [] Pending Orders: [] Pending Results/Labs:[] Pending MD notification:[] Latest Vital Signs: Temperature 98.1 , Pulse 82 , B/P 151 /84 , Respiratory Rate 20 , O2 SAT 100 , Room Air, O2 Flow Rate . Vital Sign Comment: [] EKG Rhythm: Sinus Rhythm Rhythm change?: N MD Notified?: - MD Response: Latest Urrutia Fall Score: 20 Fall Risk: Low Risk Safety Measures: Call light Within Reach, Bed Alarm Zone 2, Side Rails Side Rails x2, Bed position Low and Locked. Fall Precautions: Patient Fall Education Report given to [].
--- NOTE | 2020-04-22 07:31 | NUR ---
NURSE NOTES: The patient is alert and oriented x4 and doesn't appear to be in any active distress at this time.The Resp is even and unlabored and he is able to ambulate to the bathroom with a steady gait.The patient had dialysis early this morning and 2 liters of fluids was taken out well tolerated. Patient had a left upper arm fistular, Bruit and thrill both positive on assessment.The peripheral IV on the Left hand is intact and asymptomatic. Will continue to monitor
[2020-04-22 08:00] VITALS: BP 145/77
[2020-04-22] MEDS: Docusate 100mg cap ORAL SCH ×3 (08:52→17:33)
[2020-04-22] MEDS ORDERED: Sodium Polystyrene Sulfonate 15gm Powder ORAL SCH ×2 (09:00→17:00)
--- NOTE | 2020-04-22 09:05 | NUR ---
RD ASSESSMENT & RECOMMENDATIONS SEE CARE ACTIVITY FOR COMPLETE ASSESSMENT DAILY ESTIMATED NEEDS: Needs based on ESRD on HD 71kg abw 25-30 kcals/kg 1848-8126 total kcals 1.2-1.8 g protein/kg 85-128 g total protein Fluid per MD, on HD NUTRITION DIAGNOSIS: Increased pro needs r/t renal dysfunction as evidenced by ESRD on HD. CURRENT DIET:Renal diet PO DIET RECOMMENDATIONS: Maintain Renal diet ADDITIONAL RECOMMENDATIONS: 1) Obtain a standing weight as able 2) Add NEPRO 1 tetra qdaily (19g pro) 3) Accuchecks, BG monitoring
[2020-04-22] MEDS: cefTRIAXone 1 GM in D5W 55 ML IVPB SCH (11:31)
[2020-04-22 12:00] VITALS: BP 148/74
--- NOTE | 2020-04-22 12:38 | Nephrology Progress Note ---
Assessment/Plan Problem List: (1) ESRD (end stage renal disease) (2) HTN (hypertension) (3) Urinary tract infection (4) Anemia Assessment UTI ESRD Hypertension Anemia Plan April 22: Will order dialysis again tomorrow. Labs reviewed. Potassium 5.8. Kayexalate ordered. Blood pressure medication adjusted. Continue per consultants. April 21: Patient seen. Labs reviewed. Potassium 5.7. Kayexalate given. Patient receives dialysis Sunday however dialysis for today is ordered. Blood pressure appears to be under control. Continue per co nsultants. Blood pressure management 2D echocardiogram Antibiotics Dialysis as needed Per orders Subjective ROS Limited/Unobtainable: No Constitutional: Reports: malaise Objective Objective Last 24 Hour Vital Signs Date Time Temp Pulse Resp B/P (MAP) Pulse Ox O2 Delivery O2 Flow Rate FiO2 04/22/20 12:00 98.0 76 18 148/74 (98) 99 04/22/20 12:00 73 04/22/20 09:00 Room Air 04/22/20 08:52 74 145/77 04/22/20 08:00 82 04/22/20 08:00 98.2 74 17 145/77 (99) 99 04/22/20 04:00 82 04/22/20 04:00 98.1 78 20 151/84 (106) 100 04/22/20 00:00 97.9 83 20 157/91 (113) 100 04/21/20 21:00 Room Air 04/21/20 20:00 97.7 78 20 152/89 (110) 98 04/21/20 20:00 80 04/21/20 16:39 96.8 71 21 137/69 (91) 96 04/21/20 16:16 71 Intake and Output 04/21/20 04/22/20 19:00 07:00 Intake Total 120 ml 460 ml Output Total 1400 ml 2000 ml Balance -1280 ml -1540 ml Intake Oral 120 ml 460 ml Output Urine Total 1400 ml Hemodialysis UF 2000 ml # Voids 3 Current Medications Medications (Trade) Dose Ordered Sig/Shweta Route PRN Reason Start Time Stop Time Status Last Admin Dose Admin Acetaminophen (Tylenol) 650 mg Q4H PRN ORAL pain 04/20/20 15:00 05/20/20 14:59 Amlodipine Besylate (Norvasc) 10 mg DAILY ORAL 04/20/20 15:00 05/20/20 14:59 04/22/20 08:52 Ceftriaxone Sodium 1 gm/ Dextrose 55 ml @ 110 mls/hr Q24H IVPB 04/21/20 11:00 04/28/20 10:59 04/22/20 11:31 Clonidine HCl (Catapres Tab) 0.1 mg Q4H PRN ORAL For BP over 160 systolic 04/20/20 15:00 07/19/20 14:59 Clonidine HCl (Catapres Tab) 0.1 mg Q4H PRN ORAL BP over 160 systolic 04/22/20 12:45 07/21/20 12:44 UNV Docusate Sodium (Colace) 100 mg THREE TIMES A DAY ORAL 04/20/20 18:00 05/20/20 17:59 04/22/20 08:52 Metoclopramide HCl (Reglan) 5 mg THREE TIMES A DAY ORAL 04/22/20 13:00 05/22/20 12:59 UNV Ondansetron HCl (Zofran) 4 mg Q6H PRN IVP Nausea & Vomiting 04/20/20 15:00 05/20/20 14:59 Pantoprazole (Protonix) 40 mg EVERY 12 HOURS ORAL 04/20/20 21:00 05/20/20 20:59 04/22/20 08:52 Sodium Polystyrene Sulfonate (Kayexalate) 30 gm ONCE ONCE ORAL 04/22/20 17:00 04/22/20 17:01 UNV Laboratory Tests 04/22/20 05:25: White Blood Count 12.5H, Red Blood Count 3.37L, Hemoglobin 10.7L, Hematocrit 33.0L, Mean Corpuscular Volume 98, Mean Corpuscular Hemoglobin 31.9H, Mean Corpuscular Hemoglobin Concent 32.6, Red Cell Distribution Width 12.9, Platelet Count 314, Mean Platelet Volume 5.7L, Neutrophils (%) (Auto) 79.9H, Lymphocytes (%) (Auto) 8.9L, Monocytes (%) (Auto) 5.6, Eosinophils (%) (Auto) 1.0, Basophils (%) (Auto) 4.6H, Sodium Level 135L, Potassium Level 5.8H, Chloride Level 97L, Carbon Dioxide Level 19L, Anion Gap 19H, Blood Urea Nitrogen 61H, Creatinine 10.8H, Estimat Glomerular Filtration Rate 5.0, Glucose Level 77, Calcium Level 8.3L, Phosphorus Level 6.6H, Total Bilirubin 0.2, Aspartate Amino Transf (AST/SGOT) 31, Alanine Aminotransferase (ALT/SGPT) 38, Alkaline Phosphatase 82, C-Reactive Protein, Quantitative 1.0H, Total Protein 7.5, Albumin 4.2, Globulin 3.3, Albumin/Globulin Ratio 1.3 Height (Feet): 5 Height (Inches): 6.00 Weight (Pounds): 185 Cardiovascular: normal rate Respiratory/Chest: lungs clear Abdomen: soft Braulio Humphrey MD Apr 22, 2020 12:38
--- NOTE | 2020-04-22 12:47 | Infectious Diseases Prog Note ---
Assessment/Plan 54 yo male with PMHx of ESRD on HD and HTN who presented to the ED on 04/20/20 with bodyaches and chills. Sepsis UTI UA (+) UCx 04/20/20 - NGTD Leukocytosis No fever ESRD on HD HTN PLAN - Continue Ceftriaxone #04/21 Abx to stop today - f/u Cultures - Monitor CBC and Temps Thank you for this consult. [facility] will continue to follow Mr. Fish with you dueing this hospitalization. Subjective Allergies: Coded Allergies: No Known Allergies (Unverified , 04/20/20) Afebrile Mild leukocytosis Report feeling well Objective Last 24 Hour Vital Signs Date Time Temp Pulse Resp B/P (MAP) Pulse Ox O2 Delivery O2 Flow Rate FiO2 04/22/20 12:00 98.0 76 18 148/74 (98) 99 04/22/20 12:00 73 04/22/20 09:00 Room Air 04/22/20 08:52 74 145/77 04/22/20 08:00 82 04/22/20 08:00 98.2 74 17 145/77 (99) 99 04/22/20 04:00 82 04/22/20 04:00 98.1 78 20 151/84 (106) 100 04/22/20 00:00 97.9 83 20 157/91 (113) 100 04/21/20 21:00 Room Air 04/21/20 20:00 97.7 78 20 152/89 (110) 98 04/21/20 20:00 80 04/21/20 16:39 96.8 71 21 137/69 (91) 96 04/21/20 16:16 71 Height (Feet): 5 Height (Inches): 6.00 Weight (Pounds): 185 Gen: NAD HEENT: NCAT, MMM, EOMI, No scleral icterus Pulm: RRR, No accessory mescle use Abd: Soft, ND Microbiology Date/Time Source Procedure Growth Status 04/20/20 09:36 Urine,Clean Catch Urine Culture - Final NO GROWTH AFTER 48 HOURS Complete 04/20/20 09:36 Nasopharynx SARS-CoV-2 Antigen (Rapid)(MIROSLAVA) - Final Complete Laboratory Tests Test 04/22/20 05:25 White Blood Count 12.5 K/UL (4.8-10.8) H Red Blood Count 3.37 M/UL (4.70-6.10) L Hemoglobin 10.7 G/DL (14.2-18.0) L Hematocrit 33.0 % (42.0-52.0) L Mean Corpuscular Volume 98 FL (80-99) Mean Corpuscular Hemoglobin 31.9 PG (27.0-31.0) H Mean Corpuscular Hemoglobin Concent 32.6 G/DL (32.0-36.0) Red Cell Distribution Width 12.9 % (11.6-14.8) Platelet Count 314 K/UL (150-450) Mean Platelet Volume 5.7 FL (6.5-10.1) L Neutrophils (%) (Auto) 79.9 % (45.0-75.0) H Lymphocytes (%) (Auto) 8.9 % (20.0-45.0) L Monocytes (%) (Auto) 5.6 % (1.0-10.0) Eosinophils (%) (Auto) 1.0 % (0.0-3.0) Basophils (%) (Auto) 4.6 % (0.0-2.0) H Sodium Level 135 MMOL/L (136-145) L Potassium Level 5.8 MMOL/L (3.5-5.1) H Chloride Level 97 MMOL/L (98-107) L Carbon Dioxide Level 19 MMOL/L (21-32) L Anion Gap 19 mmol/L (5-15) H Blood Urea Nitrogen 61 mg/dL (7-18) H Creatinine 10.8 MG/DL (0.55-1.30) H Estimat Glomerular Filtration Rate 5.0 mL/min (>60) Glucose Level 77 MG/DL (74-106) Calcium Level 8.3 MG/DL (8.5-10.1) L Phosphorus Level 6.6 MG/DL (2.5-4.9) H Total Bilirubin 0.2 MG/DL (0.2-1.0) Aspartate Amino Transf (AST/SGOT) 31 U/L (15-37) Alanine Aminotransferase (ALT/SGPT) 38 U/L (12-78) Alkaline Phosphatase 82 U/L (46-116) C-Reactive Protein, Quantitative 1.0 mg/dL (0.00-0.90) H Total Protein 7.5 G/DL (6.4-8.2) Albumin 4.2 G/DL (3.4-5.0) Globulin 3.3 g/dL Albumin/Globulin Ratio 1.3 (1.0-2.7) Current Medications Medications (Trade) Dose Ordered Sig/Shweta Route PRN Reason Start Time Stop Time Status Last Admin Dose Admin Acetaminophen (Tylenol) 650 mg Q4H PRN ORAL pain 04/20/20 15:00 05/20/20 14:59 Amlodipine Besylate (Norvasc) 10 mg DAILY ORAL 04/20/20 15:00 05/20/20 14:59 04/22/20 08:52 Ceftriaxone Sodium 1 gm/ Dextrose 55 ml @ 110 mls/hr Q24H IVPB 04/21/20 11:00 04/28/20 10:59 04/22/20 11:31 Clonidine HCl (Catapres Tab) 0.1 mg Q4H PRN ORAL For BP over 160 systolic 04/20/20 15:00 07/19/20 14:59 Clonidine HCl (Catapres Tab) 0.1 mg Q4H PRN ORAL BP over 160 systolic 04/22/20 12:45 07/21/20 12:44 UNV Docusate Sodium (Colace) 100 mg THREE TIMES A DAY ORAL 04/20/20 18:00 05/20/20 17:59 04/22/20 08:52 Metoclopramide HCl (Reglan) 5 mg THREE TIMES A DAY ORAL 04/22/20 13:00 05/22/20 12:59 UNV Ondansetron HCl (Zofran) 4 mg Q6H PRN IVP Nausea & Vomiting 04/20/20 15:00 05/20/20 14:59 Pantoprazole (Protonix) 40 mg EVERY 12 HOURS ORAL 04/20/20 21:00 05/20/20 20:59 04/22/20 08:52 Sodium Polystyrene Sulfonate (Kayexalate) 30 gm ONCE ORAL 04/22/20 17:00 04/22/20 19:00 Wale Junior MD Apr 22, 2020 12:47
--- NOTE | 2020-04-22 13:30 | General Progress Note ---
Subjective Constitutional: Reports: weakness Allergies: Coded Allergies: No Known Allergies (Unverified , 04/20/20) All Systems: reviewed and negative except above Subjective sleepycalm in bed Objective Last 24 Hour Vital Signs Date Time Temp Pulse Resp B/P (MAP) Pulse Ox O2 Delivery O2 Flow Rate FiO2 04/22/20 12:00 98.0 76 18 148/74 (98) 99 04/22/20 12:00 73 04/22/20 09:00 Room Air 04/22/20 08:52 74 145/77 04/22/20 08:00 82 04/22/20 08:00 98.2 74 17 145/77 (99) 99 04/22/20 04:00 82 04/22/20 04:00 98.1 78 20 151/84 (106) 100 04/22/20 00:00 97.9 83 20 157/91 (113) 100 04/21/20 21:00 Room Air 04/21/20 20:00 97.7 78 20 152/89 (110) 98 04/21/20 20:00 80 04/21/20 16:39 96.8 71 21 137/69 (91) 96 04/21/20 16:16 71 Intake and Output 04/21/20 04/22/20 19:00 07:00 Intake Total 120 ml 460 ml Output Total 1400 ml 2000 ml Balance -1280 ml -1540 ml Intake Oral 120 ml 460 ml Output Urine Total 1400 ml Hemodialysis UF 2000 ml # Voids 3 Laboratory Tests 04/22/20 05:25: White Blood Count 12.5H, Red Blood Count 3.37L, Hemoglobin 10.7L, Hematocrit 33.0L, Mean Corpuscular Volume 98, Mean Corpuscular Hemoglobin 31.9H, Mean Corpuscular Hemoglobin Concent 32.6, Red Cell Distribution Width 12.9, Platelet Count 314, Mean Platelet Volume 5.7L, Neutrophils (%) (Auto) 79.9H, Lymphocytes (%) (Auto) 8.9L, Monocytes (%) (Auto) 5.6, Eosinophils (%) (Auto) 1.0, Basophils (%) (Auto) 4.6H, Sodium Level 135L, Potassium Level 5.8H, Chloride Level 97L, Carbon Dioxide Level 19L, Anion Gap 19H, Blood Urea Nitrogen 61H, Creatinine 10.8H, Estimat Glomerular Filtration Rate 5.0, Glucose Level 77, Calcium Level 8.3L, Phosphorus Level 6.6H, Total Bilirubin 0.2, Aspartate Amino Transf (AST/SGOT) 31, Alanine Aminotransferase (ALT/SGPT) 38, Alkaline Phosphatase 82, C-Reactive Protein, Quantitative 1.0H, Total Protein 7.5, Albumin 4.2, Globulin 3.3, Albumin/Globulin Ratio 1.3 Height (Feet): 5 Height (Inches): 6.00 Weight (Pounds): 185 General Appearance: lethargic EENT: normal ENT inspection Neck: normal alignment Cardiovascular: normal peripheral pulses, normal rate, regular rhythm Respiratory/Chest: chest wall non-tender, lungs clear, normal breath sounds Abdomen: normal bowel sounds, non tender, soft Extremities: normal inspection Edema: no edema noted Arm (L), no edema noted Arm (R), no edema noted Leg (L), no edema noted Leg (R), no edema noted Pedal (L), no edema noted Pedal (R), no edema noted Generalized Neurologic: motor weakness Skin: normal pigmentation, warm/dry Assessment/Plan Problem List: (1) ESRD (end stage renal disease) ICD Codes: N18.6 - End stage renal disease SNOMED: 71583760 (2) Anemia ICD Codes: D64.9 - Anemia, unspecified SNOMED: 899937336 (3) HTN (hypertension) ICD Codes: I10 - Essential (primary) hypertension SNOMED: 62037118 (4) Urinary tract infection ICD Codes: N39.0 - Urinary tract infection, site not specified SNOMED: 59655105 (5) Weakness ICD Codes: R53.1 - Weakness SNOMED: 04247632 Status: unchanged Assessment/Plan: pt diet abx dialysis cbc bmp am Miguel Son DO Apr 22, 2020 13:30
[2020-04-22 16:00] VITALS: BP 151/79
--- NOTE | 2020-04-22 16:17 | NUR ---
NURSE NOTES: The patient had an input for order for dialysis today 04/22/2020.[facility] dialysis was called and Lloyd was notified that the patient need to be dialyzed today.
--- NOTE | 2020-04-22 19:38 | NUR ---
NURSE HAND-OFF REPORT: Important Events on Shift:Alert and cooperative. Dialysis today Patient Status: Diet: Pending Orders: Pending Results/Labs: Pending MD notification: Latest Vital Signs: Temperature 98.1 , Pulse 75 , B/P 151 /79 , Respiratory Rate 19 , O2 SAT 98 , Room Air, O2 Flow Rate . Vital Sign Comment: EKG Rhythm: Sinus Rhythm Rhythm change?: N MD Notified?: - MD Response: Latest Urrutia Fall Score: 20 Fall Risk: Low Risk Safety Measures: Call light Within Reach, Bed Alarm Zone 2, Side Rails Side Rails x2, Bed position Low and Locked. Fall Precautions: Patient Fall Education Report given to .
--- NOTE | 2020-04-22 19:43 | NUR ---
NURSE NOTES: received patient alert oriented resting comfortable in bed watching tv. assessment initiated. patient show no signs of distress. discussed plan of care. patient aware that he will be getting dialysis again tonight. call watkins within reach, will continue to monitor.
[2020-04-22 20:00] VITALS: BP 159/99
[2020-04-23] VITALS (7 sets, daily range): BP systolic 131–156; BP diastolic 80–92
--- NOTE | 2020-04-23 06:41 | NUR ---
NURSE HAND-OFF REPORT: Important Events on Shift: patient resting comfortable in bed with no signs of distress. dialysis schedule for today. Patient Status: Diet: Pending Orders: Pending Results/Labs: Pending MD notification: Latest Vital Signs: Temperature 98.0 , Pulse 67 , B/P 137 /83 , Respiratory Rate 18 , O2 SAT 97 , Room Air, O2 Flow Rate . Vital Sign Comment: EKG Rhythm: Sinus Rhythm Rhythm change?: N MD Notified?: - MD Response: Latest Urrutia Fall Score: 20 Fall Risk: Low Risk Safety Measures: Call light Within Reach, Bed Alarm Zone 2, Side Rails Side Rails x2, Bed position Low and Locked. Fall Precautions: Patient Fall Education Report given to .
--- NOTE | 2020-04-23 07:10 | NUR ---
NURSE NOTES: Hand-off report received by Jarrod Garcia RN. Patient in stable condition, alert and oriented x4, breathing even and unlabored on room air, bed in lowest and locked position, call light within reach, side rails upx2, bed alarm on. VIP dialysis bedside, BP 150 systolic over 90 diastolic, patient asymptomatic. Heart rate 72.
--- NOTE | 2020-04-23 08:30 | Infectious Diseases Prog Note ---
Assessment/Plan 54 yo male with PMHx of ESRD on HD and HTN who presented to the ED on 04/20/20 with bodyaches and chills. Sepsis UTI UA (+) UCx 04/20/20 - NGTD Leukocytosis No fever ESRD on HD HTN PLAN - Monitor off abx - 04/22/20 SP Ceftriaxone #04/21 - Monitor CBC and Temps Thank you for this consult. [facility] will continue to follow Mr. Fish with you dueing this hospitalization. Subjective Allergies: Coded Allergies: No Known Allergies (Unverified , 04/20/20) Afebrile Mild leukocytosis as of yesterday Reports feeling well Objective Last 24 Hour Vital Signs Date Time Temp Pulse Resp B/P (MAP) Pulse Ox O2 Delivery O2 Flow Rate FiO2 04/23/20 04:00 67 04/23/20 04:00 98.0 73 18 137/83 (101) 97 04/23/20 00:00 77 04/23/20 00:00 97.2 82 18 143/85 (104) 99 04/22/20 21:00 Room Air 04/22/20 20:00 97.7 86 18 159/99 (119) 99 04/22/20 20:00 69 04/22/20 16:00 77 04/22/20 16:00 98.1 75 19 151/79 (103) 98 04/22/20 12:00 98.0 76 18 148/74 (98) 99 04/22/20 12:00 73 04/22/20 09:00 Room Air 04/22/20 08:52 74 145/77 Height (Feet): 5 Height (Inches): 6.00 Weight (Pounds): 185 Gen: NAD on RA HEENT: NCAT, MMM, EOMI, No scleral icterus Pulm: RRR, No accessory mescle use Abd: Soft, ND Microbiology Date/Time Source Procedure Growth Status 04/20/20 09:36 Urine,Clean Catch Urine Culture - Final NO GROWTH AFTER 48 HOURS Complete 04/20/20 09:36 Nasopharynx SARS-CoV-2 Antigen (Rapid)(MIROSLAVA) - Final Complete Current Medications Medications (Trade) Dose Ordered Sig/Shweta Route PRN Reason Start Time Stop Time Status Last Admin Dose Admin Acetaminophen (Tylenol) 650 mg Q4H PRN ORAL pain 04/20/20 15:00 05/20/20 14:59 Amlodipine Besylate (Norvasc) 10 mg DAILY ORAL 04/20/20 15:00 05/20/20 14:59 04/22/20 08:52 Ceftriaxone Sodium 1 gm/ Dextrose 55 ml @ 110 mls/hr Q24H IVPB 04/21/20 11:00 04/28/20 10:59 04/22/20 11:31 Clonidine HCl (Catapres Tab) 0.1 mg Q4H PRN ORAL BP over 160 systolic 04/22/20 12:45 07/21/20 12:44 Docusate Sodium (Colace) 100 mg THREE TIMES A DAY ORAL 04/20/20 18:00 05/20/20 17:59 04/22/20 17:33 Metoclopramide HCl (Reglan) 5 mg THREE TIMES A DAY ORAL 04/22/20 13:00 05/22/20 12:59 04/22/20 17:33 Ondansetron HCl (Zofran) 4 mg Q6H PRN IVP Nausea & Vomiting 04/20/20 15:00 05/20/20 14:59 Pantoprazole (Protonix) 40 mg EVERY 12 HOURS ORAL 04/20/20 21:00 05/20/20 20:59 04/22/20 20:43 Wale Junior MD Apr 23, 2020 08:30
--- NOTE | 2020-04-23 09:25 | General Progress Note ---
Subjective Constitutional: Reports: weakness Allergies: Coded Allergies: No Known Allergies (Unverified , 04/20/20) All Systems: reviewed and negative except above Subjective sleepycalm in bed Objective Last 24 Hour Vital Signs Date Time Temp Pulse Resp B/P (MAP) Pulse Ox O2 Delivery O2 Flow Rate FiO2 04/23/20 04:00 67 04/23/20 04:00 98.0 73 18 137/83 (101) 97 04/23/20 00:00 77 04/23/20 00:00 97.2 82 18 143/85 (104) 99 04/22/20 21:00 Room Air 04/22/20 20:00 97.7 86 18 159/99 (119) 99 04/22/20 20:00 69 04/22/20 16:00 77 04/22/20 16:00 98.1 75 19 151/79 (103) 98 04/22/20 12:00 98.0 76 18 148/74 (98) 99 04/22/20 12:00 73 Intake and Output 04/22/20 04/23/20 19:00 07:00 Intake Total 500 ml 240 ml Balance 500 ml 240 ml Intake Oral 500 ml 240 ml # Voids 4 2 # Bowel Movements 2 Height (Feet): 5 Height (Inches): 6.00 Weight (Pounds): 185 General Appearance: lethargic EENT: normal ENT inspection Neck: normal alignment Cardiovascular: normal peripheral pulses, normal rate, regular rhythm Respiratory/Chest: chest wall non-tender, lungs clear, normal breath sounds Abdomen: normal bowel sounds, non tender, soft Extremities: normal inspection Edema: no edema noted Arm (L), no edema noted Arm (R), no edema noted Leg (L), no edema noted Leg (R), no edema noted Pedal (L), no edema noted Pedal (R), no edema noted Generalized Neurologic: motor weakness Skin: normal pigmentation, warm/dry Assessment/Plan Problem List: (1) ESRD (end stage renal disease) ICD Codes: N18.6 - End stage renal disease SNOMED: 29045005 (2) Anemia ICD Codes: D64.9 - Anemia, unspecified SNOMED: 739252143 (3) HTN (hypertension) ICD Codes: I10 - Essential (primary) hypertension SNOMED: 74217753 (4) Urinary tract infection ICD Codes: N39.0 - Urinary tract infection, site not specified SNOMED: 88934485 (5) Weakness ICD Codes: R53.1 - Weakness SNOMED: 64612531 Status: stable, progressing, unchanged Assessment/Plan: pt diet abx dialysis cbc bmp am Miguel Son DO Apr 23, 2020 09:25
--- NOTE | 2020-04-23 09:39 | Cardiac Electrophysiology PN ---
Subjective Subjective [id number] Objective Last 24 Hour Vital Signs Date Time Temp Pulse Resp B/P (MAP) Pulse Ox O2 Delivery O2 Flow Rate FiO2 04/23/20 04:00 67 04/23/20 04:00 98.0 73 18 137/83 (101) 97 04/23/20 00:00 77 04/23/20 00:00 97.2 82 18 143/85 (104) 99 04/22/20 21:00 Room Air 04/22/20 20:00 97.7 86 18 159/99 (119) 99 04/22/20 20:00 69 04/22/20 16:00 77 04/22/20 16:00 98.1 75 19 151/79 (103) 98 04/22/20 12:00 98.0 76 18 148/74 (98) 99 04/22/20 12:00 73 Intake and Output0 04/22/20 04/23/20 19:00 07:00 Intake Total 500 ml 240 ml Balance 500 ml 240 ml Intake Oral 500 ml 240 ml # Voids 4 2 # Bowel Movements 2 Sundeep Slaughter MD Apr 23, 2020 09:39
--- NOTE | 2020-04-23 09:44 | NUR ---
NURSE NOTES: Dialysis completed, no complications noted, v/s WNL. 2L out.
[2020-04-23] MEDS: Docusate 100mg cap ORAL SCH ×3 (10:02→18:00)
--- NOTE | 2020-04-23 13:03 | Nephrology Progress Note ---
Assessment/Plan Problem List: (1) ESRD (end stage renal disease) (2) HTN (hypertension) (3) Urinary tract infection (4) Anemia Assessment UTI ESRD Hypertension Anemia Plan April 23: Patient had dialysis this morning and 2 L removed. No labs drawn today. Will check the renal parameters tomorrow. Blood pressure stable. Medication list reviewed. Continue per consultants. April 22: Will order dialysis again tomorrow. Labs reviewed. Potassium 5.8. Kayexalate ordered. Blood pressure medication adjusted. Continue per consultants. April 21: Patient seen. Labs reviewed. Potassium 5.7. Kayexalate given. Patient receives dialysis Sunday however dialysis for today is ordered. Blood pressure appears to be under control. Continue per consultants. Blood pressure management 2D echocardiogram Antibiotics Dialysis as needed Per orders Subjective ROS Limited/Unobtainable: No Constitutional: Reports: malaise Objective Objective Last 24 Hour Vital Signs Date Time Temp Pulse Resp B/P (MAP) Pulse Ox O2 Delivery O2 Flow Rate FiO2 04/23/20 10:03 82 155/90 04/23/20 09:40 97.0 82 18 155/90 (111) 97 04/23/20 08:00 97.3 84 20 131/82 (98) 97 04/23/20 08:00 82 04/23/20 04:00 67 04/23/20 04:00 98.0 73 18 137/83 (101) 97 04/23/20 00:00 77 04/23/20 00:00 97.2 82 18 143/85 (104) 99 04/22/20 21:00 Room Air 04/22/20 20:00 97.7 86 18 159/99 (119) 99 04/22/20 20:00 69 04/22/20 16:00 77 04/22/20 16:00 98.1 75 19 151/79 (103) 98 Intake and Output 04/22/20 04/23/20 19:00 07:00 Intake Total 500 ml 240 ml Balance 500 ml 240 ml Intake Oral 500 ml 240 ml # Voids 4 2 # Bowel Movements 2 Current Medications Medications (Trade) Dose Ordered Sig/Shweta Route PRN Reason Start Time Stop Time Status Last Admin Dose Admin Acetaminophen (Tylenol) 650 mg Q4H PRN ORAL pain 04/20/20 15:00 05/20/20 14:59 Amlodipine Besylate (Norvasc) 10 mg DAILY ORAL 04/20/20 15:00 05/20/20 14:59 04/23/20 10:03 Clonidine HCl (Catapres Tab) 0.1 mg Q4H PRN ORAL BP over 160 systolic 04/22/20 12:45 07/21/20 12:44 Docusate Sodium (Colace) 100 mg THREE TIMES A DAY ORAL 04/20/20 18:00 05/20/20 17:59 04/23/20 10:02 Metoclopramide HCl (Reglan) 5 mg THREE TIMES A DAY ORAL 04/22/20 13:00 05/22/20 12:59 04/23/20 10:03 Metoprolol Tartrate (Lopressor) 12.5 mg Q12HR ORAL 04/23/20 21:00 07/22/20 20:59 Ondansetron HCl (Zofran) 4 mg Q6H PRN IVP Nausea & Vomiting 04/20/20 15:00 05/20/20 14:59 Pantoprazole (Protonix) 40 mg EVERY 12 HOURS ORAL 04/20/20 21:00 05/20/20 20:59 04/23/20 10:03 No chemistry panel drawn today Height (Feet): 5 Height (Inches): 6.00 Weight (Pounds): 185 General Appearance: no apparent distress Cardiovascular: normal rate Respiratory/Chest: decreased breath sounds Abdomen: distended Braulio Humphrey MD Apr 23, 2020 13:03
[2020-04-23 13:11] LABS: BASOPHILS % (AUTO) 0.9 % (0.0-2.0); EOSINOPHILS % (AUTO) 1.7 % (0.0-3.0); HEMATOCRIT 32.8 % (42.0-52.0); HEMOGLOBIN 11.1 G/DL (14.2-18.0); LYMPHOCYTES % (AUTO) 14.7 % (20.0-45.0); MEAN CORPUSCULAR VOLUME 95 FL (80-99); MONOCYTES % (AUTO) 9.9 % (1.0-10.0); NEUTROPHILS % (AUTO) 72.9 % (45.0-75.0); PLATELET COUNT 286 K/UL (150-450); RED BLOOD COUNT 3.44 M/UL (4.70-6.10); RED CELL DISTRIBUTION WIDTH 12.5 % (11.6-14.8)
[2020-04-23 13:22] LABS: CALCIUM 8.8 MG/DL (8.5-10.1); CREATININE 7.3 MG/DL (0.55-1.30); POTASSIUM 3.5 MMOL/L (3.5-5.1)
--- NOTE | 2020-04-23 15:21 | Cardiology Report ---
APPROVED REPORT EXAM: Two-dimensional and M-mode echocardiogram with Doppler and color Doppler. INDICATION Congenital Heart Disease M-Mode DIMENSIONS IVSd1.1 (0.7-1.1cm)Left Atrium (MM)4.7 (1.6-4.0cm) LVDd5.4 (3.5-5.6cm)Aortic Root3.6 (2.0-3.7cm) PWd1.1 (0.7-1.1cm)Aortic Cusp Exc.1.9 (1.5-2.0cm) IVSs1.5 cmEPSS0.4 (>1.0cm) LVDs3.7 (2.5-4.0cm) PWs2.1 cm <Conclusion> Normal left ventricular chamber size, mildly depressed systolic function and wall motion to extent visualized. Left ventricular ejection fraction estimated to be 50-55 %. No evidence of left ventricular hypertrophy. Anterior Echo-free space, may be due to pericardial fat or effusion. All other cardiac chamber sizes are within normal limits. Focal aortic valve sclerosis with adequate cusp excursion. Thickened mitral valve leaflets with normal excursion. Mitral annulus and aortic root calcification. Pulmonic valve not well visualized. Normal tricuspid valve structure. IVC at normal size with physiologic collapse. A color flow and spectral Doppler study was performed and revealed: No aortic regurgitation. Trace mitral regurgitation. Mitral diastolic velocities suggest reduced left ventricular relaxation c/w mild LV diastolic dysfunction (Grade I ). Trace tricuspid regurgitation. Tricuspid systolic velocities suggests peak right ventricular systolic pressure of 15 mmHg. No pulmonic regurgitation present.
--- NOTE | 2020-04-23 15:34 | Cardiology Report ---
APPROVED REPORT EKG Measurement Heart [id number] <Conclusion> Normal sinus rhythm Cannot rule out Inferior infarct, age undetermined Abnormal ECG
--- NOTE | 2020-04-23 16:44 | Consultation ---
DATE OF CONSULTATION: 04/23/2020 CARDIOLOGY CONSULTATION CONSULTING PHYSICIAN: Sundeep Slaughter MD. REFERRING PHYSICIAN: Miguel Son DO. REASON FOR CONSULTATION: Management of hypertension and tachycardia. HISTORY OF PRESENT ILLNESS: The patient is a 54-year-old gentleman with history of hypertension and end-stage renal disease, on hemodialysis, who was admitted on April 20, 2020 with body aches and chills. The patient was also tachycardic. Cardiology consultation was obtained for further evaluation and management. At the time of my evaluation, the patient is undergoing hemodialysis and denies any chest pain or shortness of breath. He has two negative troponins as well. REVIEW OF SYSTEMS: Negative other than what is mentioned in the history of present illness. PAST MEDICAL HISTORY: As mentioned above. FAMILY HISTORY: Noncontributory. SOCIAL HISTORY: Does not smoke or drink alcohol. PHYSICAL EXAMINATION: VITAL SIGNS: Blood pressure 137/83, pulse is 90, respirations 18, and he is afebrile. HEAD AND NECK: Shows no JVD. LUNGS: Clear. CARDIOVASCULAR: Shows regular S1 and S2 with no gallop or murmur. ABDOMEN: Soft. EXTREMITIES: No pitting edema. LABORATORY DATA: Labs show sodium 131, potassium 3.6, BUN of 32, creatinine 7.5, glucose of 119. The most recent laboratories show sodium 135, potassium 5.8. His troponins are negative x2. BNP is 8528. ASSESSMENT AND PLAN: 1. Hypertension. Continue p.r.n. clonidine as well as amlodipine 10 mg daily. 2. Atypical chest pain due to volume overload. Two troponins are negative. EKG does not show any acute ischemic changes. 3. End-stage renal disease, on hemodialysis. 4. Tachycardia heart disorder, improved. 5. Generalized weakness, urinary tract infection has resolved. Thank you very much for allowing me to participate in the care of this patient. Please do not hesitate to contact me for any questions regarding my evaluation. It is of note the patient's echocardiogram showed EF of 55%. Sundeep Slaughter M.D. DR: PEARL/MEGAN JOB#: [id number] CC:
--- NOTE | 2020-04-23 19:10 | NUR ---
NURSE HAND-OFF REPORT: Important Events on Shift: dialysis completed successfully, 2L out, stable Patient Status: full code, stable condition Diet: renal Pending Orders: [] Pending Results/Labs:[] Pending MD notification:[] Latest Vital Signs: Temperature 98.1 , Pulse 69 , B/P 142 /80 , Respiratory Rate 18 , O2 SAT 95 , Room Air, O2 Flow Rate . Vital Sign Comment: [] EKG Rhythm: Sinus Rhythm Rhythm change?: N MD Notified?: - MD Response: Latest Urrutia Fall Score: 20 Fall Risk: Low Risk Safety Measures: Call light Within Reach, Bed Alarm Zone 2, Side Rails Side Rails x2, Bed position Low and Locked. Fall Precautions: Yellow Socks Yellow Gown Patient Fall Education Report given to YANDY Garcia.
--- NOTE | 2020-04-23 19:30 | NUR ---
NURSE NOTES: received patient alert oriented resting comfortable in bed. assessment initiated. patient show no signs of distress. discussed plan of care. call watkins within reach, will continue to monitor.
[2020-04-24] VITALS: BP 135/77
[2020-04-24 04:00] VITALS: BP 140/80
[2020-04-24 06:07] LABS: EOSINOPHILS % (AUTO) 3.4 % (0.0-3.0); HEMATOCRIT 31.5 % (42.0-52.0); HEMOGLOBIN 10.4 G/DL (14.2-18.0); LYMPHOCYTES % (AUTO) 19.5 % (20.0-45.0); MEAN CORPUSCULAR VOLUME 97 FL (80-99); PLATELET COUNT 265 K/UL (150-450); RED BLOOD COUNT 3.24 M/UL (4.70-6.10); RED CELL DISTRIBUTION WIDTH 12.5 % (11.6-14.8)
[2020-04-24 06:32] LABS: PHOSPHORUS 7.8 MG/DL (2.5-4.9)
[2020-04-24 06:40] LABS: ALBUMIN 3.8 G/DL (3.4-5.0); ALBUMIN/GLOBULIN RATIO 1.2 (1.0-2.7); BILIRUBIN,TOTAL 0.5 MG/DL (0.2-1.0); CALCIUM 8.3 MG/DL (8.5-10.1); CREATININE 9.8 MG/DL (0.55-1.30); POTASSIUM 4.5 MMOL/L (3.5-5.1)
--- NOTE | 2020-04-24 06:57 | NUR ---
NURSE HAND-OFF REPORT: Important Events on Shift:patent received dialysis yesterday 2L out. no signs of distress. patient resting comfortable in bed. Patient Status:v full Diet: renal Pending Orders: Pending Results/Labs:y Pending notification: Latest Vital Signs: Temperature 98.2 , Pulse 67 , B/P 140 /80 , Respiratory Rate 20 , O2 SAT 97 , Room Air, O2 Flow Rate . Vital Sign Comment: EKG Rhythm: Sinus Rhythm Rhythm change?: N MD Notified?: - MD Response: Latest Urrutia Fall Score: 20 Fall Risk: Low Risk Safety Measures: Call light Within Reach, Bed Alarm Zone 2, Side Rails Side Rails x2, Bed position Low and Locked. Fall Precautions: call watkins within reach, bed in low position. Yellow Socks Yellow Gown Patient Fall Education Report given to .assign day RN
[2020-04-24 08:00] VITALS: BP 139/79
[2020-04-24] MEDS: Docusate 100mg cap ORAL SCH ×3 (08:49→17:50)
--- NOTE | 2020-04-24 09:39 | General Progress Note ---
Subjective Constitutional: Reports: weakness Allergies: Coded Allergies: No Known Allergies (Unverified , 04/20/20) All Systems: reviewed and negative except above Subjective sleepy calm in bed Objective Last 24 Hour Vital Signs Date Time Temp Pulse Resp B/P (MAP) Pulse Ox O2 Delivery O2 Flow Rate FiO2 04/24/20 08:00 98.2 75 20 139/79 (99) 98 04/24/20 04:00 98.2 67 20 140/80 (100) 97 04/24/20 04:00 64 04/24/20 00:00 97.9 70 18 135/77 (96) 97 04/24/20 00:00 82 04/23/20 21:00 Room Air 04/23/20 20:37 73 145/92 04/23/20 20:00 72 04/23/20 20:00 98.1 73 18 145/92 (109) 98 04/23/20 16:00 69 04/23/20 16:00 98.1 71 18 142/80 (100) 95 04/23/20 12:00 76 04/23/20 12:00 98.4 79 18 156/86 (109) 98 04/23/20 10:03 82 155/90 04/23/20 09:40 97.0 82 18 155/90 (111) 97 Intake and Output 04/23/20 04/24/20 19:00 07:00 Intake Total 1200 ml 460 ml Balance 1200 ml 460 ml Intake Oral 1200 ml 460 ml # Voids 1 2 Laboratory Tests 04/23/20 13:00: White Blood Count 11.0H, Red Blood Count 3.44L, Hemoglobin 11.1L, Hematocrit 32.8L, Mean Corpuscular Volume 95, Mean Corpuscular Hemoglobin 32.2H, Mean Corpuscular Hemoglobin Concent 33.7, Red Cell Distribution Width 12.5, Platelet Count 286, Mean Platelet Volume 6.0L, Neutrophils (%) (Auto) 72.9, Lymphocytes (%) (Auto) 14.7L, Monocytes (%) (Auto) 9.9, Eosinophils (%) (Auto) 1.7, Basophils (%) (Auto) 0.9, Sodium Level 140, Potassium Level 3.5, Chloride Level 100, Carbon Dioxide Level 29, Anion Gap 11, Blood Urea Nitrogen 34H, Creatinine 7.3H, Estimat Glomerular Filtration Rate 7.9, Glucose Level 187#H, Calcium Level 8.8 04/24/20 05:40: White Blood Count 9.0, Red Blood Count 3.24L, Hemoglobin 10.4L, Hematocrit 31.5L , Mean Corpuscular Volume 97, Mean Corpuscular Hemoglobin 32.1H, Mean Corpuscular Hemoglobin Concent 33.0, Red Cell Distribution Width 12.5, Platelet Count 265, Mean Platelet Volume 6.3L, Neutrophils (%) (Auto) 64.0, Lymphocytes (%) (Auto) 19.5L, Monocytes (%) (Auto) 12.0H, Eosinophils (%) (Auto) 3.4H, Basophils (%) (Auto) 1.0, Sodium Level 143, Potassium Level 4.5, Chloride Level 102, Carbon Dioxide Level 30, Anion Gap 11, Blood Urea Nitrogen 54H, Creatinine 9.8H, Estimat Glomerular Filtration Rate 5.6, Glucose Level 87#, Calcium Level 8.3L, Phosphorus Level 7.8H, Magnesium Level 2.0, Total Bilirubin 0.5, Aspartate Amino Transf (AST/SGOT) 25, Alanine Aminotransferase (ALT/SGPT) 33, Alkaline Phosphatase 78, C-Reactive Protein, Quantitative 0.8, Pro-B-Type Natriuretic Peptide 5546H, Total Protein 6.9, Albumin 3.8, Globulin 3.1, Albumin/Globulin Ratio 1.2 Height (Feet): 5 Height (Inches): 6.00 Weight (Pounds): 185 General Appearance: lethargic EENT: normal ENT inspection Neck: normal alignment Cardiovascular: normal peripheral pulses, normal rate, regular rhythm Respiratory/Chest: chest wall non-tender, lungs clear, normal breath sounds Abdomen: normal bowel sounds, non tender, soft Extremities: normal inspection Edema: no edema noted Arm (L), no edema noted Arm (R), no edema noted Leg (L), no edema noted Leg (R), no edema noted Pedal (L), no edema noted Pedal (R), no edema noted Generalized Neurologic: motor weakness Skin: normal pigmentation, warm/dry Assessment/Plan Problem List: (1) ESRD (end stage renal disease) ICD Codes: N18.6 - End stage renal disease SNOMED: 82252673 (2) Anemia ICD Codes: D64.9 - Anemia, unspecified SNOMED: 671789777 (3) HTN (hypertension) ICD Codes: I10 - Essential (primary) hypertension SNOMED: 75562652 (4) Urinary tract infection ICD Codes: N39.0 - Urinary tract infection, site not specified SNOMED: 14721812 (5) Weakness ICD Codes: R53.1 - Weakness SNOMED: 65595673 Status: stable, progressing, unchanged Assessment/Plan: pt diet abx dialysis cbc bmp am dc plan if clear by cardio neph Miguel Son DO Apr 24, 2020 09:39
--- NOTE | 2020-04-24 10:31 | Infectious Diseases Prog Note ---
Assessment/Plan 54 yo male with PMHx of ESRD on HD and HTN who presented to the ED on 04/20/20 with bodyaches and chills. Sepsis, Sp UTI UA (+) UCx 04/20/20 - NGTD Leukocytosis, Sp No fever ESRD on HD HTN PLAN - Monitor off abx - 04/22/20 SP Ceftriaxone #04/21 - Monitor CBC and Temps Thank you for this consult. [facility] will continue to follow Mr. Fish with you dueing this hospitalization. Subjective Allergies: Coded Allergies: No Known Allergies (Unverified , 04/20/20) Afebrile Objective Last 24 Hour Vital Signs Date Time Temp Pulse Resp B/P (MAP) Pulse Ox O2 Delivery O2 Flow Rate FiO2 04/24/20 08:00 98.2 75 20 139/79 (99) 98 04/24/20 04:00 98.2 67 20 140/80 (100) 97 04/24/20 04:00 64 04/24/20 00:00 97.9 70 18 135/77 (96) 97 04/24/20 00:00 82 04/23/20 21:00 Room Air 04/23/20 20:37 73 145/92 04/23/20 20:00 72 04/23/20 20:00 98.1 73 18 145/92 (109) 98 04/23/20 16:00 69 04/23/20 16:00 98.1 71 18 142/80 (100) 95 04/23/20 12:00 76 04/23/20 12:00 98.4 79 18 156/86 (109) 98 Height (Feet): 5 Height (Inches): 6.00 Weight (Pounds): 185 General Appearance: no acute distress HEENT: mucous membranes moist Cardiovascular: normal rate Abdomen: soft, non tender Laboratory Tests Test 04/23/20 13:00 04/24/20 05:40 White Blood Count 11.0 K/UL (4.8-10.8) H 9.0 K/UL (4.8-10.8) Red Blood Count 3.44 M/UL (4.70-6.10) L 3.24 M/UL (4.70-6.10) L Hemoglobin 11.1 G/DL (14.2-18.0) L 10.4 G/DL (14.2-18.0) L Hematocrit 32.8 % (42.0-52.0) L 31.5 % (42.0-52.0) L Mean Corpuscular Volume 95 FL (80-99) 97 FL (80-99) Mean Corpuscular Hemoglobin 32.2 PG (27.0-31.0) H 32.1 PG (27.0-31.0) H Mean Corpuscular Hemoglobin Concent 33.7 G/DL (32.0-36.0) 33.0 G/DL (32.0-36.0) Red Cell Distribution Width 12.5 % (11.6-14.8) 12.5 % (11.6-14.8) Platelet Count 286 K/UL (150-450) 265 K/UL (150-450) Mean Platelet Volume 6.0 FL (6.5-10.1) L 6.3 FL (6.5-10.1) L Neutrophils (%) (Auto) 72.9 % (45.0-75.0) 64.0 % (45.0-75.0) Lymphocytes (%) (Auto) 14.7 % (20.0-45.0) L 19.5 % (20.0-45.0) L Monocytes (%) (Auto) 9.9 % (1.0-10.0) 12.0 % (1.0-10.0) H Eosinophils (%) (Auto) 1.7 % (0.0-3.0) 3.4 % (0.0-3.0) H Basophils (%) (Auto) 0.9 % (0.0-2.0) 1.0 % (0.0-2.0) Sodium Level 140 MMOL/L (136-145) 143 MMOL/L (136-145) Potassium Level 3.5 MMOL/L (3.5-5.1) 4.5 MMOL/L (3.5-5.1) Chloride Level 100 MMOL/L (98-107) 102 MMOL/L (98-107) Carbon Dioxide Level 29 MMOL/L (21-32) 30 MMOL/L (21-32) Anion Gap 11 mmol/L (5-15) 11 mmol/L (5-15) Blood Urea Nitrogen 34 mg/dL (7-18) H 54 mg/dL (7-18) H Creatinine 7.3 MG/DL (0.55-1.30) H 9.8 MG/DL (0.55-1.30) H Estimat Glomerular Filtration Rate 7.9 mL/min (>60) 5.6 mL/min (>60) Glucose Level 187 MG/DL (74-106) #H 87 MG/DL (74-106) # Calcium Level 8.8 MG/DL (8.5-10.1) 8.3 MG/DL (8.5-10.1) L Phosphorus Level 7.8 MG/DL (2.5-4.9) H Magnesium Level 2.0 MG/DL (1.8-2.4) Total Bilirubin 0.5 MG/DL (0.2-1.0) Aspartate Amino Transf (AST/SGOT) 25 U/L (15-37) Alanine Aminotransferase (ALT/SGPT) 33 U/L (12-78) Alkaline Phosphatase 78 U/L (46-116) C-Reactive Protein, Quantitative 0.8 mg/dL (0.00-0.90) Pro-B-Type Natriuretic Peptide 5546 pg/mL (0-125) H Total Protein 6.9 G/DL (6.4-8.2) Albumin 3.8 G/DL (3.4-5.0) Globulin 3.1 g/dL Albumin/Globulin Ratio 1.2 (1.0-2.7) Current Medications Medications (Trade) Dose Ordered Sig/Shweta Route PRN Reason Start Time Stop Time Status Last Admin Dose Admin Acetaminophen (Tylenol) 650 mg Q4H PRN ORAL pain 04/20/20 15:00 05/20/20 14:59 Amlodipine Besylate (Norvasc) 10 mg DAILY ORAL 04/20/20 15:00 05/20/20 14:59 04/23/20 10:03 Clonidine HCl (Catapres Tab) 0.1 mg Q4H PRN ORAL BP over 160 systolic 04/22/20 12:45 07/21/20 12:44 Docusate Sodium (Colace) 100 mg THREE TIMES A DAY ORAL 04/20/20 18:00 05/20/20 17:59 04/24/20 08:49 Metoclopramide HCl (Reglan) 5 mg THREE TIMES A DAY ORAL 04/22/20 13:00 05/22/20 12:59 04/24/20 08:49 Metoprolol Tartrate (Lopressor) 12.5 mg Q12HR ORAL 04/23/20 21:00 07/22/20 20:59 04/23/20 20:37 Ondansetron HCl (Zofran) 4 mg Q6H PRN IVP Nausea & Vomiting 04/20/20 15:00 05/20/20 14:59 Pantoprazole (Protonix) 40 mg EVERY 12 HOURS ORAL 04/20/20 21:00 05/20/20 20:59 04/24/20 08:49 Edward Silva MD Apr 24, 2020 10:31
[2020-04-24 12:00] VITALS: BP 160/87
--- NOTE | 2020-04-24 12:06 | NUR ---
Received order stating that patient will have dialysis on tomorrow. Call placed to [facility] nephrology spoke with Hannah and advised that patient is scheduled for dialysis on tomorrow. Patient given scheduled 9 AM blood pressure medications at 1200 pm Advised patient that dialysis is scheduled for tomorrow will continue to monitor
--- NOTE | 2020-04-24 13:36 | Cardiac Electrophysiology PN ---
Assessment/Plan Assessment/Plan 1. Hypertension. Continue p.r.n. clonidine and amlodipine 10 mg daily. Increase Metoprolol to 25 po bid. Also on HD 2. Atypical chest pain due to volume overload. Two troponins are negative. EKG does not show any acute ischemic changes. 3. End-stage renal disease, on hemodialysis. 4. Tachycardia heart disorder, improved. 5. Generalized weakness and urinary tract infection DW RN Subjective Subjective Had HD yesterday and another one pending tomorrow. No CP. BP mildly elevated Objective Last 24 Hour Vital Signs Date Time Temp Pulse Resp B/P (MAP) Pulse Ox O2 Delivery O2 Flow Rate FiO2 04/24/20 12:01 75 160/87 04/24/20 12:01 75 160/87 04/24/20 12:00 98.1 75 20 160/87 (111) 98 04/24/20 12:00 73 04/24/20 09:00 Room Air 04/24/20 08:00 80 04/24/20 08:00 98.2 75 20 139/79 (99) 98 04/24/20 04:00 98.2 67 20 140/80 (100) 97 04/24/20 04:00 64 04/24/20 00:00 97.9 70 18 135/77 (96) 97 04/24/20 00:00 82 04/23/20 21:00 Room Air 04/23/20 20:37 73 145/92 04/23/20 20:00 72 04/23/20 20:00 98.1 73 18 145/92 (109) 98 04/23/20 16:00 69 04/23/20 16:00 98.1 71 18 142/80 (100) 95 Intake and Output 04/23/20 04/24/20 19:00 07:00 Intake Total 1200 ml 460 ml Balance 1200 ml 460 ml Intake Oral 1200 ml 460 ml # Voids 1 2 Laboratory Tests Test 04/24/20 05:40 White Blood Count 9.0 K/UL (4.8-10.8) Red Blood Count 3.24 M/UL (4.70-6.10) L Hemoglobin 10.4 G/DL (14.2-18.0) L Hematocrit 31.5 % (42.0-52.0) L Mean Corpuscular Volume 97 FL (80-99) Mean Corpuscular Hemoglobin 32.1 PG (27.0-31.0) H Mean Corpuscular Hemoglobin Concent 33.0 G/DL (32.0-36.0) Red Cell Distribution Width 12.5 % (11.6-14.8) Platelet Count 265 K/UL (150-450) Mean Platelet Volume 6.3 FL (6.5-10.1) L Neutrophils (%) (Auto) 64.0 % (45.0-75.0) Lymphocytes (%) (Auto) 19.5 % (20.0-45.0) L Monocytes (%) (Auto) 12.0 % (1.0-10.0) H Eosinophils (%) (Auto) 3.4 % (0.0-3.0) H Basophils (%) (Auto) 1.0 % (0.0-2.0) Sodium Level 143 MMOL/L (136-145) Potassium Level 4.5 MMOL/L (3.5-5.1) Chloride Level 102 MMOL/L (98-107) Carbon Dioxide Level 30 MMOL/L (21-32) Anion Gap 11 mmol/L (5-15) Blood Urea Nitrogen 54 mg/dL (7-18) H Creatinine 9.8 MG/DL (0.55-1.30) H Estimat Glomerular Filtration Rate 5.6 mL/min (>60) Glucose Level 87 MG/DL (74-106) # Calcium Level 8.3 MG/DL (8.5-10.1) L Phosphorus Level 7.8 MG/DL (2.5-4.9) H Magnesium Level 2.0 MG/DL (1.8-2.4) Total Bilirubin 0.5 MG/DL (0.2-1.0) Aspartate Amino Transf (AST/SGOT) 25 U/L (15-37) Alanine Aminotransferase (ALT/SGPT) 33 U/L (12-78) Alkaline Phosphatase 78 U/L (46-116) C-Reactive Protein, Quantitative 0.8 mg/dL (0.00-0.90) Pro-B-Type Natriuretic Peptide 5546 pg/mL (0-125) H Total Protein 6.9 G/DL (6.4-8.2) Albumin 3.8 G/DL (3.4-5.0) Globulin 3.1 g/dL Albumin/Globulin Ratio 1.2 (1.0-2.7) Objective HEAD AND NECK: No JVD. LUNGS: Clear. CARDIOVASCULAR: regular S1 and S2 with no gallop or murmur. ABDOMEN: Soft. EXTREMITIES: No pitting edema. Sundeep Slaughter MD Apr 24, 2020 13:36
--- NOTE | 2020-04-24 14:35 | Nephrology Progress Note ---
Assessment/Plan Problem List: (1) ESRD (end stage renal disease) (2) HTN (hypertension) (3) Urinary tract infection (4) Anemia Assessment UTI ESRD Hypertension Anemia Plan April 24: Patient due for dialysis tomorrow. Labs reviewed. Phosphorus binders ordered. Blood pressure stable. Continue per consultants. April 23: Patient had dialysis this morning and 2 L removed. No labs drawn today. Will check the renal parameters tomorrow. Blood pressure stable. Medication list reviewed. Continue per consultants. April 22: Will order dialysis again tomorrow. Labs reviewed. Potassium 5.8. Kayexalate ordered. Blood pressure medication adjusted. Continue per consultants. April 21: Patient seen. Labs reviewed. Potassium 5.7. Kayexalate given. Patient receives dialysis Sunday however dialysis for today is ordered. Blood pressure appears to be under control. Continue per consultants. Blood pressure management 2D echocardiogram Antibiotics Dialysis as needed Per orders Subjective ROS Limited/Unobtainable: No Objective Objective Last 24 Hour Vital Signs Date Time Temp Pulse Resp B/P (MAP) Pulse Ox O2 Delivery O2 Flow Rate FiO2 04/24/20 14:17 75 160/87 04/24/20 12:01 75 160/87 04/24/20 12:01 75 160/87 04/24/20 12:00 98.1 75 20 160/87 (111) 98 04/24/20 12:00 73 04/24/20 09:00 Room Air 04/24/20 08:00 80 04/24/20 08:00 98.2 75 20 139/79 (99) 98 04/24/20 04:00 98.2 67 20 140/80 (100) 97 04/24/20 04:00 64 04/24/20 00:00 97.9 70 18 135/77 (96) 97 04/24/20 00:00 82 04/23/20 21:00 Room Air 04/23/20 20:37 73 145/92 04/23/20 20:00 72 04/23/20 20:00 98.1 73 18 145/92 (109) 98 04/23/20 16:00 69 04/23/20 16:00 98.1 71 18 142/80 (100) 95 Intake and Output 04/23/20 04/24/20 19:00 07:00 Intake Total 1200 ml 460 ml Balance 1200 ml 460 ml Intake Oral 1200 ml 460 ml # Voids 1 2 Current Medications Medications (Trade) Dose Ordered Sig/Shweta Route PRN Reason Start Time Stop Time Status Last Admin Dose Admin Acetaminophen (Tylenol) 650 mg Q4H PRN ORAL pain 04/20/20 15:00 05/20/20 14:59 Amlodipine Besylate (Norvasc) 10 mg DAILY ORAL 04/20/20 15:00 05/20/20 14:59 04/24/20 12:01 Clonidine HCl (Catapres Tab) 0.1 mg Q4H PRN ORAL BP over 160 systolic 04/22/20 12:45 07/21/20 12:44 Docusate Sodium (Colace) 100 mg THREE TIMES A DAY ORAL 04/20/20 18:00 05/20/20 17:59 04/24/20 12:53 Metoclopramide HCl (Reglan) 5 mg THREE TIMES A DAY ORAL 04/22/20 13:00 05/22/20 12:59 04/24/20 12:53 Metoprolol Tartrate (Lopressor) 12.5 mg ONCE ORAL 04/24/20 13:38 04/24/20 15:30 04/24/20 14:17 Metoprolol Tartrate (Lopressor) 25 mg Q12HR ORAL 04/24/20 21:00 07/23/20 20:59 Ondansetron HCl (Zofran) 4 mg Q6H PRN IVP Nausea & Vomiting 04/20/20 15:00 05/20/20 14:59 Pantoprazole (Protonix) 40 mg EVERY 12 HOURS ORAL 04/20/20 21:00 05/20/20 20:59 04/24/20 08:49 Laboratory Tests 04/24/20 05:40: White Blood Count 9.0, Red Blood Count 3.24L, Hemoglobin 10.4L, Hematocrit 31.5L , Mean Corpuscular Volume 97, Mean Corpuscular Hemoglobin 32.1H, Mean Corpuscular Hemoglobin Concent 33.0, Red Cell Distribution Width 12.5, Platelet Count 265, Mean Platelet Volume 6.3L, Neutrophils (%) (Auto) 64.0, Lymphocytes (%) (Auto) 19.5L, Monocytes (%) (Auto) 12.0H, Eosinophils (%) (Auto) 3.4H, Basophils (%) (Auto) 1.0, Sodium Level 143, Potassium Level 4.5, Chloride Level 102, Carbon Dioxide Level 30, Anion Gap 11, Blood Urea Nitrogen 54H, Creatinine 9.8H, Estimat Glomerular Filtration Rate 5.6, Glucose Level 87#, Calcium Level 8.3L, Phosphorus Level 7.8H, Magnesium Level 2.0, Total Bilirubin 0.5, Aspartate Amino Transf (AST/SGOT) 25, Alanine Aminotransferase (ALT/SGPT) 33, Alkaline Phosphatase 78, C-Reactive Protein, Quantitative 0.8, Pro-B-Type Natriuretic Peptide 5546H, Total Protein 6.9, Albumin 3.8, Globulin 3.1, Albumin/Globulin R atio 1.2 Height (Feet): 5 Height (Inches): 6.00 Weight (Pounds): 185 General Appearance: no apparent distress Cardiovascular: normal rate Respiratory/Chest: decreased breath sounds Abdomen: distended Braulio Humphrey MD Apr 24, 2020 14:35
[2020-04-24 16:00] VITALS: BP 163/83
--- NOTE | 2020-04-24 19:10 | NUR ---
NURSE NOTES: The patient is alert and oriented x4 and is calm and responsive with his care with Resp even and unlabored and the bilateral lung sounds are all clear on auscultation. Patient is able to ambulate to the bathroom with a steady gait. patient is scheduled for dialysis tomorrow. He has a left upper arm fistular he uses for dialysis,the Bruit and thrill are all positive on assessment.The bed in lowest level, call light within easy reach. will continue to monitor as indicated.
[2020-04-24 20:00] VITALS: BP 138/60
[2020-04-25] VITALS: BP 163/83
[2020-04-25 04:00] VITALS: BP 121/75
--- NOTE | 2020-04-25 07:13 | NUR ---
NURSE HAND-OFF REPORT: Important Events on Shift:Alert and cooperative. Dialysis schedule today with [facility] Patient Status: Diet: Pending Orders: Pending Results/Labs: Pending MD notification: Latest Vital Signs: Temperature 97.6 , Pulse 65 , B/P 121 /75 , Respiratory Rate 19 , O2 SAT 98 , Room Air, O2 Flow Rate . Vital Sign Comment: EKG Rhythm: Sinus Rhythm Rhythm change?: N MD Notified?: - MD Response: Latest Urrutia Fall Score: 20 Fall Risk: Low Risk Safety Measures: Call light Within Reach, Bed Alarm Zone 2, Side Rails Side Rails x2, Bed position Low and Locked. Fall Precautions: Yellow Socks Yellow Gown Patient Fall Education Report given to .
[2020-04-25 08:00] VITALS: BP 146/76
[2020-04-25] MEDS: Docusate 100mg cap ORAL SCH ×3 (08:55→17:55)
--- NOTE | 2020-04-25 09:51 | General Progress Note ---
Subjective Constitutional: Reports: weakness Allergies: Coded Allergies: No Known Allergies (Unverified , 04/20/20) All Systems: reviewed and negative except above Subjective sleepy calm in bed Objective Last 24 Hour Vital Signs Date Time Temp Pulse Resp B/P (MAP) Pulse Ox O2 Delivery O2 Flow Rate FiO2 04/25/20 08:00 66 04/25/20 08:00 97.7 68 18 146/76 (99) 97 04/25/20 04:00 65 04/25/20 04:00 97.6 65 19 121/75 (90) 98 04/25/20 02:43 163/83 04/25/20 00:00 98.2 68 20 163/83 (109) 98 04/25/20 00:00 66 04/24/20 21:00 Room Air 04/24/20 20:43 71 138/60 04/24/20 20:00 97.3 68 20 138/60 (86) 98 04/24/20 20:00 71 04/24/20 16:00 98.2 68 20 163/83 (109) 98 04/24/20 16:00 61 04/24/20 14:17 75 160/87 04/24/20 12:01 75 160/87 04/24/20 12:01 75 160/87 04/24/20 12:00 98.1 75 20 160/87 (111) 98 04/24/20 12:00 73 Intake and Output 04/24/20 04/25/20 19:00 07:00 Intake Total 500 ml 360 ml Balance 500 ml 360 ml Intake Oral 500 ml 360 ml # Voids 8 2 Height (Feet): 5 Height (Inches): 6.00 Weight (Pounds): 185 General Appearance: lethargic EENT: normal ENT inspection Neck: normal alignment Cardiovascular: normal peripheral pulses, normal rate, regular rhythm Respiratory/Chest: chest wall non-tender, lungs clear, normal breath sounds Abdomen: normal bowel sounds, non tender, soft Extremities: normal inspection Edema: no edema noted Arm (L), no edema noted Arm (R), no edema noted Leg (L), no edema noted Leg (R), no edema noted Pedal (L), no edema noted Pedal (R), no edema noted Generalized Neurologic: motor weakness Skin: normal pigmentation, warm/dry Assessment/Plan Problem List: (1) ESRD (end stage renal disease) ICD Codes: N18.6 - End stage renal disease SNOMED: 25053219 (2) Anemia ICD Codes: D64.9 - Anemia, unspecified SNOMED: 503951964 (3) HTN (hypertension) ICD Codes: I10 - Essential (primary) hypertension SNOMED: 07110251 (4) Urinary tract infection ICD Codes: N39.0 - Urinary tract infection, site not specified SNOMED: 88596238 (5) Weakness ICD Codes: R53.1 - Weakness SNOMED: 32696475 Status: stable, progressing, unchanged Assessment/Plan: pt diet abx dialysis cbc bmp am dc plan if clear by cardio neph Miguel Son DO Apr 25, 2020 09:51
[2020-04-25 11:29] LABS: EOSINOPHILS % (AUTO) 2.9 % (0.0-3.0); HEMATOCRIT 32.7 % (42.0-52.0); HEMOGLOBIN 10.7 G/DL (14.2-18.0); LYMPHOCYTES % (AUTO) 21.5 % (20.0-45.0); MEAN CORPUSCULAR VOLUME 97 FL (80-99); MONOCYTES % (AUTO) 9.4 % (1.0-10.0); NEUTROPHILS % (AUTO) 65.2 % (45.0-75.0); PLATELET COUNT 284 K/UL (150-450); RED BLOOD COUNT 3.38 M/UL (4.70-6.10); RED CELL DISTRIBUTION WIDTH 12.3 % (11.6-14.8)
--- NOTE | 2020-04-25 11:39 | NUR ---
CASE MANAGEMENT:REVIEW 54 YR OLD MALE BIBA CC: CHILLS, DIZZINESS AND BODY ACHES PMH: ESRD/HD SI: UTI. WEAKNESS. ABN EKG 98.5 110 18 166/97 98% ON RA K+5.8 BUN+61 CR+10.8 WBC+11.5 IS: ASA PO IV ROCEPHIN 500CC NS BOLUS IV ZOFRAN URINE CX COVID ANTIGEN : TO TELEMETRY DCP: FROM HOME
[2020-04-25 11:55] LABS: CALCIUM 8.4 MG/DL (8.5-10.1); CREATININE 13.4 MG/DL (0.55-1.30); POTASSIUM 4.9 MMOL/L (3.5-5.1)
[2020-04-25 12:00] VITALS: BP 162/84
--- NOTE | 2020-04-25 12:02 | NUR ---
Patients blood pressure medication is 162/84 and heart rate 64 at noon vital signs. Amlodipine and Metoprolol not given this AM due to patient being scheduled for dialysis. A call was placed to Dr. Oliver who stated not to hold patient's blood pressure medication on dialysis day. Will administer medication.
[2020-04-25 16:00] VITALS: BP 125/77
--- NOTE | 2020-04-25 16:46 | Nephrology Progress Note ---
Assessment/Plan Problem List: (1) ESRD (end stage renal disease) (2) HTN (hypertension) (3) Urinary tract infection (4) Anemia Assessment UTI ESRD Hypertension Anemia Plan April 25: Patient currently on dialysis. Tolerating well. Labs reviewed and medication list reviewed. April 24: Patient due for dialysis tomorrow. Labs reviewed. Phosphorus binders ordered. Blood pressure stable. Continue per consultants. April 23: Patient had dialysis this morning and 2 L removed. No labs drawn today. Will check the renal parameters tomorrow. Blood pressure stable. Medication list reviewed. Continue per consultants. April 22: Will order dialysis again tomorrow. Labs reviewed. Potassium 5.8. Kayexalate ordered. Blood pressure medication adjusted. Continue per consultants. April 21: Patient seen. Labs reviewed. Potassium 5.7. Kayexalate given. Patient receives dialysis Sunday however dialysis for today is ordered. Blood pressure appears to be under control. Continue per consultants. Blood pressure management 2D echocardiogram Antibiotics Dialysis as needed Per orders Subjective ROS Limited/Unobtainable: No Constitutional: Reports: malaise Objective Objective Last 24 Hour Vital Signs Date Time Temp Pulse Resp B/P (MAP) Pulse Ox O2 Delivery O2 Flow Rate FiO2 04/25/20 16:00 97.5 59 18 125/77 (93) 97 04/25/20 16:00 58 04/25/20 12:08 64 162/84 04/25/20 12:08 64 162/84 04/25/20 12:00 68 04/25/20 12:00 97.5 64 18 162/84 (110) 98 04/25/20 09:00 Room Air 04/25/20 08:00 66 04/25/20 08:00 97.7 68 18 146/76 (99) 97 04/25/20 04:00 65 04/25/20 04:00 97.6 65 19 121/75 (90) 98 04/25/20 02:43 163/83 04/25/20 00:00 98.2 68 20 163/83 (109) 98 04/25/20 00:00 66 04/24/20 21:00 Room Air 04/24/20 20:43 71 138/60 04/24/20 20:00 97.3 68 20 138/60 (86) 98 04/24/20 20:00 71 Intake and Output 04/24/20 04/25/20 19:00 07:00 Intake Total 500 ml 360 ml Balance 500 ml 360 ml Intake Oral 500 ml 360 ml # Voids 8 2 Current Medications Medications (Trade) Dose Ordered Sig/Shweta Route PRN Reason Start Time Stop Time Status Last Admin Dose Admin Acetaminophen (Tylenol) 650 mg Q4H PRN ORAL pain 04/20/20 15:00 05/20/20 14:59 Amlodipine Besylate (Norvasc) 10 mg DAILY ORAL 04/20/20 15:00 05/20/20 14:59 04/25/20 12:08 Clonidine HCl (Catapres Tab) 0.1 mg Q4H PRN ORAL BP over 160 systolic 04/22/20 12:45 07/21/20 12:44 04/25/20 02:43 Docusate Sodium (Colace) 100 mg THREE TIMES A DAY ORAL 04/20/20 18:00 05/20/20 17:59 04/25/20 13:42 Metoclopramide HCl (Reglan) 5 mg THREE TIMES A DAY ORAL 04/22/20 13:00 05/22/20 12:59 04/25/20 13:42 Metoprolol Tartrate (Lopressor) 25 mg Q12HR ORAL 04/24/20 21:00 07/23/20 20:59 04/25/20 12:08 Ondansetron HCl (Zofran) 4 mg Q6H PRN IVP Nausea & Vomiting 04/20/20 15:00 05/20/20 14:59 Pantoprazole (Protonix) 40 mg EVERY 12 HOURS ORAL 04/20/20 21:00 05/20/20 20:59 04/25/20 08:55 Sevelamer Carbonate (Renvela) 1,600 mg THREE TIMES A DAY ORAL 04/24/20 14:45 07/23/20 14:44 04/25/20 13:42 Laboratory Tests 04/25/20 11:15: White Blood Count 9.0, Red Blood Count 3.38L, Hemoglobin 10.7L, Hematocrit 32.7L , Mean Corpuscular Volume 97, Mean Corpuscular Hemoglobin 31.5H, Mean Corpuscular Hemoglobin Concent 32.6, Red Cell Distribution Width 12.3, Platelet Count 284, Mean Platelet Volume 5.9L, Neutrophils (%) (Auto) 65.2, Lymphocytes (%) (Auto) 21.5, Monocytes (%) (Auto) 9.4, Eosinophils (%) (Auto) 2.9, Basophils (%) (Auto) 1.0, Sodium Level 143, Potassium Level 4.9, Chloride Level 101, Carbon Dioxide Level 26, Anion Gap 16H, Blood Urea Nitrogen 88H, Creatinine 13.4H, Estimat Glomerular Filtration Rate 3.9, Glucose Level 107H, Calcium Level 8.4L Height (Feet): 5 Height (Inches): 6.00 Weight (Pounds): 185 General Appearance: no apparent distress Cardiovascular: normal rate Respiratory/Chest: decreased breath sounds Abdomen: soft Braulio Humphrey MD Apr 25, 2020 16:46
[2020-04-25 20:00] VITALS: BP 162/82
[2020-04-26] VITALS: BP 117/63
[2020-04-26 04:00] VITALS: BP 119/75
--- NOTE | 2020-04-26 07:22 | NUR ---
NURSE HAND-OFF REPORT: Important Events on Shift: no complains for the night. patient rested comfortable with no signs of distress. no pain. Patient Status: full Diet: renal Pending Orders: Pending Results/Labs: Pending MD notification: Latest Vital Signs: Temperature 98.2 , Pulse 59 , B/P 119 /75 , Respiratory Rate 20 , O2 SAT 98 , Room Air, O2 Flow Rate . Vital Sign Comment: EKG Rhythm: Sinus Rhythm Rhythm change?: N MD Notified?: - MD Response: Latest Urrutia Fall Score: 20 Fall Risk: Low Risk Safety Measures: Call light Within Reach, Bed Alarm Zone 2, Side Rails Side Rails x2, Bed position Low and Locked. Fall Precautions: Yellow Socks Yellow Gown Patient Fall Education Report given to assigned day RN
[2020-04-26 07:56] LABS: BASOPHILS % (AUTO) 1.1 % (0.0-2.0); EOSINOPHILS % (AUTO) 2.7 % (0.0-3.0); HEMOGLOBIN 10.8 G/DL (14.2-18.0); LYMPHOCYTES % (AUTO) 22.3 % (20.0-45.0); MEAN CORPUSCULAR VOLUME 98 FL (80-99); MONOCYTES % (AUTO) 8.8 % (1.0-10.0); PLATELET COUNT 266 K/UL (150-450); RED BLOOD COUNT 3.38 M/UL (4.70-6.10); RED CELL DISTRIBUTION WIDTH 12.4 % (11.6-14.8); WHITE BLOOD COUNT 8.8 K/UL (4.8-10.8)
[2020-04-26 08:00] VITALS: BP 136/76
[2020-04-26 08:08] LABS: CALCIUM 8.7 MG/DL (8.5-10.1); CREATININE 10.7 MG/DL (0.55-1.30)
--- NOTE | 2020-04-26 08:37 | Infectious Diseases Prog Note ---
Assessment/Plan 54 yo male with PMHx of ESRD on HD and HTN who presented to the ED on 04/20/20 with bodyaches and chills. Sepsis, Sp UTI UA (+) UCx 04/20/20 - NGTD Leukocytosis, Sp No fever ESRD on HD HTN PLAN - Continue to monitor off abx - 04/22/20 SP Ceftriaxone #04/21 - Monitor CBC and Temps Thank you for this consult. [facility] will continue to follow Mr. Fish with you dueing this hospitalization. Subjective Allergies: Coded Allergies: No Known Allergies (Unverified , 04/20/20) Afebrile Mild leukocytosis resolved Reports feeling well Objective Last 24 Hour Vital Signs Date Time Temp Pulse Resp B/P (MAP) Pulse Ox O2 Delivery O2 Flow Rate FiO2 04/26/20 08:00 99.1 71 20 136/76 (96) 97 04/26/20 08:00 70 04/26/20 04:00 59 04/26/20 04:00 98.2 63 20 119/75 (90) 98 04/26/20 00:00 98.3 65 20 117/63 (81) 97 04/26/20 00:00 64 04/25/20 21:00 Room Air 04/25/20 20:36 65 162/82 04/25/20 20:36 162/82 04/25/20 20:00 98.1 65 18 162/82 (108) 99 04/25/20 20:00 71 04/25/20 16:00 97.5 59 18 125/77 (93) 97 04/25/20 16:00 58 04/25/20 12:08 64 162/84 04/25/20 12:08 64 162/84 04/25/20 12:00 68 04/25/20 12:00 97.5 64 18 162/84 (110) 98 04/25/20 09:00 Room Air Height (Feet): 5 Height (Inches): 6.00 Weight (Pounds): 185 Gen: NAD HEENT: NCAT, MMM, EOMI, No scleral icterus Pulm: RRR, No accessory mescle use Abd: Soft, ND Laboratory Tests Test 04/25/20 11:15 04/26/20 07:07 White Blood Count 9.0 K/UL (4.8-10.8) 8.8 K/UL (4.8-10.8) Red Blood Count 3.38 M/UL (4.70-6.10) L 3.38 M/UL (4.70-6.10) L Hemoglobin 10.7 G/DL (14.2-18.0) L 10.8 G/DL (14.2-18.0) L Hematocrit 32.7 % (42.0-52.0) L 33.0 % (42.0-52.0) L Mean Corpuscular Volume 97 FL (80-99) 98 FL (80-99) Mean Corpuscular Hemoglobin 31.5 PG (27.0-31.0) H 31.9 PG (27.0-31.0) H Mean Corpuscular Hemoglobin Concent 32.6 G/DL (32.0-36.0) 32.7 G/DL (32.0-36.0) Red Cell Distribution Width 12.3 % (11.6-14.8) 12.4 % (11.6-14.8) Platelet Count 284 K/UL (150-450) 266 K/UL (150-450) Mean Platelet Volume 5.9 FL (6.5-10.1) L 5.9 FL (6.5-10.1) L Neutrophils (%) (Auto) 65.2 % (45.0-75.0) 65.0 % (45.0-75.0) Lymphocytes (%) (Auto) 21.5 % (20.0-45.0) 22.3 % (20.0-45.0) Monocytes (%) (Auto) 9.4 % (1.0-10.0) 8.8 % (1.0-10.0) Eosinophils (%) (Auto) 2.9 % (0.0-3.0) 2.7 % (0.0-3.0) Basophils (%) (Auto) 1.0 % (0.0-2.0) 1.1 % (0.0-2.0) Sodium Level 143 MMOL/L (136-145) 141 MMOL/L (136-145) Potassium Level 4.9 MMOL/L (3.5-5.1) 5.0 MMOL/L (3.5-5.1) Chloride Level 101 MMOL/L (98-107) 102 MMOL/L (98-107) Carbon Dioxide Level 26 MMOL/L (21-32) 28 MMOL/L (21-32) Anion Gap 16 mmol/L (5-15) H 11 mmol/L (5-15) Blood Urea Nitrogen 88 mg/dL (7-18) H 65 mg/dL (7-18) H Creatinine 13.4 MG/DL (0.55-1.30) H 10.7 MG/DL (0.55-1.30) H Estimat Glomerular Filtration Rate 3.9 mL/min (>60) 5.1 mL/min (>60) Glucose Level 107 MG/DL (74-106) H 89 MG/DL (74-106) Calcium Level 8.4 MG/DL (8.5-10.1) L 8.7 MG/DL (8.5-10.1) Current Medications Medications (Trade) Dose Ordered Sig/Shweta Route PRN Reason Start Time Stop Time Status Last Admin Dose Admin Acetaminophen (Tylenol) 650 mg Q4H PRN ORAL pain 04/20/20 15:00 05/20/20 14:59 Amlodipine Besylate (Norvasc) 10 mg DAILY ORAL 04/20/20 15:00 05/20/20 14:59 04/25/20 12:08 Clonidine HCl (Catapres Tab) 0.1 mg Q4H PRN ORAL BP over 160 systolic 04/22/20 12:45 07/21/20 12:44 04/25/20 20:36 Docusate Sodium (Colace) 100 mg THREE TIMES A DAY ORAL 04/20/20 18:00 05/20/20 17:59 04/25/20 17:55 Metoclopramide HCl (Reglan) 5 mg THREE TIMES A DAY ORAL 04/22/20 13:00 05/22/20 12:59 04/25/20 17:55 Metoprolol Tartrate (Lopressor) 25 mg Q12HR ORAL 04/24/20 21:00 07/23/20 20:59 04/25/20 20:36 Ondansetron HCl (Zofran) 4 mg Q6H PRN IVP Nausea & Vomiting 04/20/20 15:00 05/20/20 14:59 Pantoprazole (Protonix) 40 mg EVERY 12 HOURS ORAL 04/20/20 21:00 05/20/20 20:59 04/25/20 20:36 Sevelamer Carbonate (Renvela) 1,600 mg THREE TIMES A DAY ORAL 04/24/20 14:45 07/23/20 14:44 04/25/20 17:55 Wale Junior MD Apr 26, 2020 08:37
[2020-04-26] MEDS: Docusate 100mg cap ORAL SCH ×3 (08:42→18:04)
--- NOTE | 2020-04-26 08:59 | General Progress Note ---
Subjective Constitutional: Reports: weakness Allergies: Coded Allergies: No Known Allergies (Unverified , 04/20/20) All Systems: reviewed and negative except above Subjective sleepy calm in bed Objective Last 24 Hour Vital Signs Date Time Temp Pulse Resp B/P (MAP) Pulse Ox O2 Delivery O2 Flow Rate FiO2 04/26/20 08:42 70 136/76 04/26/20 08:41 70 136/76 04/26/20 08:00 99.1 71 20 136/76 (96) 97 04/26/20 08:00 70 04/26/20 04:00 59 04/26/20 04:00 98.2 63 20 119/75 (90) 98 04/26/20 00:00 98.3 65 20 117/63 (81) 97 04/26/20 00:00 64 04/25/20 21:00 Room Air 04/25/20 20:36 65 162/82 04/25/20 20:36 162/82 04/25/20 20:00 98.1 65 18 162/82 (108) 99 04/25/20 20:00 71 04/25/20 16:00 97.5 59 18 125/77 (93) 97 04/25/20 16:00 58 04/25/20 12:08 64 162/84 04/25/20 12:08 64 162/84 04/25/20 12:00 68 04/25/20 12:00 97.5 64 18 162/84 (110) 98 04/25/20 09:00 Room Air Intake and Output 04/25/20 04/26/20 19:00 07:00 Intake Total 360 ml 460 ml Balance 360 ml 460 ml Intake Oral 360 ml 460 ml # Voids 2 3 Laboratory Tests 04/25/20 11:15: White Blood Count 9.0, Red Blood Count 3.38L, Hemoglobin 10.7L, Hematocrit 32.7L , Mean Corpuscular Volume 97, Mean Corpuscular Hemoglobin 31.5H, Mean Corpuscular Hemoglobin Concent 32.6, Red Cell Distribution Width 12.3, Platelet Count 284, Mean Platelet Volume 5.9L, Neutrophils (%) (Auto) 65.2, Lymphocytes (%) (Auto) 21.5, Monocytes (%) (Auto) 9.4, Eosinophils (%) (Auto) 2.9, Basophils (%) (Auto) 1.0, Sodium Level 143, Potassium Level 4.9, Chloride Level 101, Carbon Dioxide Level 26, Anion Gap 16H, Blood Urea Nitrogen 88H, Creatinine 13.4H, Estimat Glomerular Filtration Rate 3.9, Glucose Level 107H, Calcium Level 8.4L 04/26/20 07:07: White Blood Count 8.8, Red Blood Count 3.38L, Hemoglobin 10.8L, Hematocrit 33.0L , Mean Corpuscular Volume 98, Mean Corpuscular Hemoglobin 31.9H, Mean Corpuscular Hemoglobin Concent 32.7, Red Cell Distribution Width 12.4, Platelet Count 266, Mean Platelet Volume 5.9L, Neutrophils (%) (Auto) 65.0, Lymphocytes (%) (Auto) 22.3, Monocytes (%) (Auto) 8.8, Eosinophils (%) (Auto) 2.7, Basophils (%) (Auto) 1.1, Sodium Level 141, Potassium Level 5.0, Chloride Level 102, Carbon Dioxide Level 28, Anion Gap 11, Blood Urea Nitrogen 65H, Creatinine 10.7H , Estimat Glomerular Filtration Rate 5.1, Glucose Level 89, Calcium Level 8.7 Height (Feet): 5 Height (Inches): 6.00 Weight (Pounds): 185 General Appearance: lethargic EENT: normal ENT inspection Neck: normal alignment Cardiovascular: normal peripheral pulses, normal rate, regular rhythm Respiratory/Chest: chest wall non-tender, lungs clear, normal breath sounds Abdomen: normal bowel sounds, non tender, soft Extremities: normal inspection Edema: no edema noted Arm (L), no edema noted Arm (R), no edema noted Leg (L), no edema noted Leg (R), no edema noted Pedal (L), no edema noted Pedal (R), no edema noted Generalized Neurologic: responsive, motor weakness Skin: normal pigmentation, warm/dry Assessment/Plan Problem List: (1) ESRD (end stage renal disease) ICD Codes: N18.6 - End stage renal disease SNOMED: 12871883 (2) Anemia ICD Codes: D64.9 - Anemia, unspecified SNOMED: 796239875 (3) HTN (hypertension) ICD Codes: I10 - Essential (primary) hypertension SNOMED: 33072002 (4) Urinary tract infection ICD Codes: N39.0 - Urinary tract infection, site not specified SNOMED: 43998218 (5) Weakness ICD Codes: R53.1 - Weakness SNOMED: 62632146 Status: stable, progressing, unchanged Assessment/Plan: pt diet abx dialysis cbc bmp am dc plan if clear by cardio neph Miguel Son DO Apr 26, 2020 08:59
--- NOTE | 2020-04-26 11:29 | Nephrology Progress Note ---
Assessment/Plan Problem List: (1) ESRD (end stage renal disease) (2) HTN (hypertension) (3) Urinary tract infection (4) Anemia Assessment UTI ESRD Hypertension Anemia Plan April 26: Lives yesterday. Labs and medication list reviewed. Due for dialysis tomorrow. April 25: Patient currently on dialysis. Tolerating well. Labs reviewed and medication list reviewed. April 24: Patient due for dialysis tomorrow. Labs reviewed. Phosphorus binders ordered. Blood pressure stable. Continue per consultants. April 23: Patient had dialysis this morning and 2 L removed. No labs drawn today. Will check the renal parameters tomorrow. Blood pressure stable. Medication list reviewed. Continue per consultants. April 22: Will order dialysis again tomorrow. Labs reviewed. Potassium 5.8. Kayexalate ordered. Blood pressure medication adjusted. Continue per consultants. April 21: Patient seen. Labs reviewed. Potassium 5.7. Kayexalate given. Patient receives dialysis Sunday however dialysis for today is ordered. Blood pressure appears to be under control. Continue per consultants. Blood pressure management 2D echocardiogram Antibiotics Dialysis as needed Per orders Subjective ROS Limited/Unobtainable: No Constitutional: Reports: malaise Objective Objective Last 24 Hour Vital Signs Date Time Temp Pulse Resp B/P (MAP) Pulse Ox O2 Delivery O2 Flow Rate FiO2 04/26/20 09:00 Room Air 04/26/20 08:42 70 136/76 04/26/20 08:41 70 136/76 04/26/20 08:00 99.1 71 20 136/76 (96) 97 04/26/20 08:00 70 04/26/20 04:00 59 04/26/20 04:00 98.2 63 20 119/75 (90) 98 04/26/20 00:00 98.3 65 20 117/63 (81) 97 04/26/20 00:00 64 04/25/20 21:00 Room Air 04/25/20 20:36 65 162/82 04/25/20 20:36 162/82 04/25/20 20:00 98.1 65 18 162/82 (108) 99 04/25/20 20:00 71 04/25/20 16:00 97.5 59 18 125/77 (93) 97 04/25/20 16:00 58 04/25/20 12:08 64 162/84 04/25/20 12:08 64 162/84 04/25/20 12:00 68 04/25/20 12:00 97.5 64 18 162/84 (110) 98 Intake and Output 04/25/20 04/26/20 19:00 07:00 Intake Total 360 ml 460 ml Balance 360 ml 460 ml Intake Oral 360 ml 460 ml # Voids 2 3 Current Medications Medications (Trade) Dose Ordered Sig/Shweta Route PRN Reason Start Time Stop Time Status Last Admin Dose Admin Acetaminophen (Tylenol) 650 mg Q4H PRN ORAL pain 04/20/20 15:00 05/20/20 14:59 Amlodipine Besylate (Norvasc) 10 mg DAILY ORAL 04/20/20 15:00 05/20/20 14:59 04/26/20 08:41 Clonidine HCl (Catapres Tab) 0.1 mg Q4H PRN ORAL BP over 160 systolic 04/22/20 12:45 07/21/20 12:44 04/25/20 20:36 Docusate Sodium (Colace) 100 mg THREE TIMES A DAY ORAL 04/20/20 18:00 05/20/20 17:59 04/26/20 08:42 Metoclopramide HCl (Reglan) 5 mg THREE TIMES A DAY ORAL 04/22/20 13:00 05/22/20 12:59 04/26/20 08:42 Metoprolol Tartrate (Lopressor) 25 mg Q12HR ORAL 04/24/20 21:00 07/23/20 20:59 04/26/20 08:42 Ondansetron HCl (Zofran) 4 mg Q6H PRN IVP Nausea & Vomiting 04/20/20 15:00 05/20/20 14:59 Pantoprazole (Protonix) 40 mg EVERY 12 HOURS ORAL 04/20/20 21:00 05/20/20 20:59 04/26/20 08:41 Sevelamer Carbonate (Renvela) 1,600 mg THREE TIMES A DAY ORAL 04/24/20 14:45 07/23/20 14:44 04/26/20 08:41 Laboratory Tests 04/26/20 07:07: White Blood Count 8.8, Red Blood Count 3.38L, Hemoglobin 10.8L, Hematocrit 33.0L , Mean Corpuscular Volume 98, Mean Corpuscular Hemoglobin 31.9H, Mean Corpuscular Hemoglobin Concent 32.7, Red Cell Distribution Width 12.4, Platelet Count 266, Mean Platelet Volume 5.9L, Neutrophils (%) (Auto) 65.0, Lymphocytes (%) (Auto) 22.3, Monocytes (%) (Auto) 8.8, Eosinophils (%) (Auto) 2.7, Basophils (%) (Auto) 1.1, Sodium Level 141, Potassium Level 5.0, Chloride Level 102, Carbon Dioxide Level 28, Anion Gap 11, Blood Urea Nitrogen 65H, Creatinine 10.7H , Estimat Glomerular Filtration Rate 5.1, Glucose Level 89, Calcium Level 8.7 Height (Feet): 5 Height (Inches): 6.00 Weight (Pounds): 185 General Appearance: no apparent distress Cardiovascular: normal rate Respiratory/Chest: decreased breath sounds Abdomen: distended Braulio Humphrey MD Apr 26, 2020 11:29
[2020-04-26 12:00] VITALS: BP 137/71
--- NOTE | 2020-04-26 13:22 | NUR ---
*-*DISCHARGE PLANNING*-* PATIENTS HAS DIALYSIS AT: [facility] [address] [address] P: [phone] CHAIR-TIME IS: SUNDAY, SUNDAY, SUNDAY @ 4AM FOR 3HOURS PATIENT SHOULD ARRIVE AT 3:30AM TO FILL OUT PAPER WORK.
--- NOTE | 2020-04-26 13:28 | Cardiac Electrophysiology PN ---
Assessment/Plan Assessment/Plan 1. Hypertension. Continue amlodipine 10 mg daily, Metoprolol 25 po bid, HD and p.r.n. clonidine 2. Atypical chest pain due to volume overload. Two troponins are negative. EKG does not show any acute ischemic changes. 3. End-stage renal disease, on hemodialysis. 4. Tachycardia, improved. 5. Generalized weakness and urinary tract infection DW RN Subjective Subjective Had HD yesterday and another one pending tomorrow. No CP. Objective Last 24 Hour Vital Signs Date Time Temp Pulse Resp B/P (MAP) Pulse Ox O2 Delivery O2 Flow Rate FiO2 04/26/20 12:00 61 04/26/20 12:00 97.9 64 20 137/71 (93) 97 04/26/20 09:00 Room Air 04/26/20 08:42 70 136/76 04/26/20 08:41 70 136/76 04/26/20 08:00 99.1 71 20 136/76 (96) 97 04/26/20 08:00 70 04/26/20 04:00 59 04/26/20 04:00 98.2 63 20 119/75 (90) 98 04/26/20 00:00 98.3 65 20 117/63 (81) 97 04/26/20 00:00 64 04/25/20 21:00 Room Air 04/25/20 20:36 65 162/82 04/25/20 20:36 162/82 04/25/20 20:00 98.1 65 18 162/82 (108) 99 04/25/20 20:00 71 04/25/20 16:00 97.5 59 18 125/77 (93) 97 04/25/20 16:00 58 Intake and Output 04/25/20 04/26/20 19:00 07:00 Intake Total 360 ml 460 ml Balance 360 ml 460 ml Intake Oral 360 ml 460 ml # Voids 2 3 Laboratory Tests Test 04/26/20 07:07 White Blood Count 8.8 K/UL (4.8-10.8) Red Blood Count 3.38 M/UL (4.70-6.10) L Hemoglobin 10.8 G/DL (14.2-18.0) L Hematocrit 33.0 % (42.0-52.0) L Mean Corpuscular Volume 98 FL (80-99) Mean Corpuscular Hemoglobin 31.9 PG (27.0-31.0) H Mean Corpuscular Hemoglobin Concent 32.7 G/DL (32.0-36.0) Red Cell Distribution Width 12.4 % (11.6-14.8) Platelet Count 266 K/UL (150-450) Mean Platelet Volume 5.9 FL (6.5-10.1) L Neutrophils (%) (Auto) 65.0 % (45.0-75.0) Lymphocytes (%) (Auto) 22.3 % (20.0-45.0) Monocytes (%) (Auto) 8.8 % (1.0-10.0) Eosinophils (%) (Auto) 2.7 % (0.0-3.0) Basophils (%) (Auto) 1.1 % (0.0-2.0) Sodium Level 141 MMOL/L (136-145) Potassium Level 5.0 MMOL/L (3.5-5.1) Chloride Level 102 MMOL/L (98-107) Carbon Dioxide Level 28 MMOL/L (21-32) Anion Gap 11 mmol/L (5-15) Blood Urea Nitrogen 65 mg/dL (7-18) H Creatinine 10.7 MG/DL (0.55-1.30) H Estimat Glomerular Filtration Rate 5.1 mL/min (>60) Glucose Level 89 MG/DL (74-106) Calcium Level 8.7 MG/DL (8.5-10.1) Objective HEAD AND NECK: No JVD. LUNGS: Clear. CARDIOVASCULAR: regular S1 and S2 with no gallop or murmur. ABDOMEN: Soft. EXTREMITIES: No pitting edema. Sundeep Slaughter MD Apr 26, 2020 13:28
--- NOTE | 2020-04-26 14:29 | NUR ---
Call placed to [facility] nephrology to advice of patient's dialysis schedule for tomorrow. Spoke with
[2020-04-26 16:00] VITALS: BP 128/83
--- NOTE | 2020-04-26 19:30 | NUR ---
NURSE NOTES: received patient alert oriented resting comfortable in bed. assessment initiated. patient show no signs of distress. bed in low position. call watkins within reach, will continue to monitor.
[2020-04-26 20:00] VITALS: BP 155/82
[2020-04-27] VITALS: BP 130/70
--- NOTE | 2020-04-27 01:15 | NUR ---
NURSE NOTES: patient sleeping comfortable in bed. no signs of distress noted. call watkins within reach, will continue to monitor.
[2020-04-27 04:00] VITALS: BP 120/70
--- NOTE | 2020-04-27 07:29 | NUR ---
NURSE HAND-OFF REPORT: Important Events on Shift: no changes from previous assessment. patient is schedule to have dialysis done today. call watkins within reach. Patient Status: full Diet: renal Pending Orders: Pending Results/Labs: Pending MD notification: Latest Vital Signs: Temperature 97.2 , Pulse 68 , B/P 120 /70 , Respiratory Rate 16 , O2 SAT 96 , Room Air, O2 Flow Rate . Vital Sign Comment: EKG Rhythm: Sinus Rhythm Rhythm change?: N MD Notified?: - MD Response: Latest Urr[place]ia Fall Score: 20 Fall Risk: Low Risk Safety Measures: Call light Within Reach, Bed Alarm Zone 2, Side Rails Side Rails x2, Bed position Low and Locked. Fall Precautions: Yellow Socks Yellow Gown Patient Fall Education Report given to Ariel KEBDEE.
--- NOTE | 2020-04-27 07:57 | Infectious Diseases Prog Note ---
Assessment/Plan 54 yo male with PMHx of ESRD on HD and HTN who presented to the ED on 04/20/20 with bodyaches and chills. Sepsis, Sp UTI UA (+) UCx 04/20/20 - NGTD Leukocytosis, Sp No fever ESRD on HD HTN PLAN - Monitor off abx - 04/22/20 SP Ceftriaxone #04/21 - Monitor CBC and Temps Thank you for this consult. [facility] will continue to follow Mr. Fish with you dueing this hospitalization. Subjective Allergies: Coded Allergies: No Known Allergies (Unverified , 04/20/20) Afebrile No leukocytosis INNA Objective Last 24 Hour Vital Signs Date Time Temp Pulse Resp B/P (MAP) Pulse Ox O2 Delivery O2 Flow Rate FiO2 04/27/20 04:00 97.2 68 16 120/70 (87) 96 04/27/20 04:00 61 04/27/20 00:00 63 04/27/20 00:00 97.6 68 16 130/70 (90) 95 04/26/20 21:00 Room Air 04/26/20 20:34 73 155/82 04/26/20 20:00 98.1 73 16 155/82 (106) 97 04/26/20 20:00 66 04/26/20 16:00 67 04/26/20 16:00 98.4 68 20 128/83 (98) 99 04/26/20 12:00 61 04/26/20 12:00 97.9 64 20 137/71 (93) 97 04/26/20 09:00 Room Air 04/26/20 08:42 70 136/76 04/26/20 08:41 70 136/76 04/26/20 08:00 99.1 71 20 136/76 (96) 97 04/26/20 08:00 70 Height (Feet): 5 Height (Inches): 6.00 Weight (Pounds): 185 Gen: NAD on RA HEENT: NCAT, MMM, EOMI, No scleral icterus Pulm: RRR, No accessory mescle use Abd: Soft, ND Current Medications Medications (Trade) Dose Ordered Sig/Shweta Route PRN Reason Start Time Stop Time Status Last Admin Dose Admin Acetaminophen (Tylenol) 650 mg Q4H PRN ORAL pain 04/20/20 15:00 05/20/20 14:59 Amlodipine Besylate (Norvasc) 10 mg DAILY ORAL 04/20/20 15:00 05/20/20 14:59 04/26/20 08:41 Clonidine HCl (Catapres Tab) 0.1 mg Q4H PRN ORAL BP over 160 systolic 04/22/20 12:45 07/21/20 12:44 04/25/20 20:36 Docusate Sodium (Colace) 100 mg THREE TIMES A DAY ORAL 04/20/20 18:00 05/20/20 17:59 04/26/20 18:04 Metoclopramide HCl (Reglan) 5 mg THREE TIMES A DAY ORAL 04/22/20 13:00 05/22/20 12:59 04/26/20 18:04 Metoprolol Tartrate (Lopressor) 25 mg Q12HR ORAL 04/24/20 21:00 07/23/20 20:59 04/26/20 20:34 Ondansetron HCl (Zofran) 4 mg Q6H PRN IVP Nausea & Vomiting 04/20/20 15:00 05/20/20 14:59 Pantoprazole (Protonix) 40 mg EVERY 12 HOURS ORAL 04/20/20 21:00 05/20/20 20:59 04/26/20 20:34 Sevelamer Carbonate (Renvela) 1,600 mg THREE TIMES A DAY ORAL 04/24/20 14:45 07/23/20 14:44 04/26/20 18:04 Wale Junior MD Apr 27, 2020 07:57
[2020-04-27 08:00] VITALS: BP 147/85
[2020-04-27] MEDS: Docusate 100mg cap ORAL SCH ×3 (09:26→18:03)
--- NOTE | 2020-04-27 10:37 | Nephrology Progress Note ---
Assessment/Plan Problem List: (1) ESRD (end stage renal disease) (2) HTN (hypertension) (3) Urinary tract infection (4) Anemia Assessment UTI ESRD Hypertension Anemia Plan April 27: Due for dialysis today. Labs and medication list reviewed. Stable for discharge after dialysis from renal standpoint of view. April 26: Dialyzed yesterday. Labs and medication list reviewed. Due for dialysis tomorrow. April 25: Patient currently on dialysis. Tolerating well. Labs reviewed and medication list reviewed. April 24: Patient due for dialysis tomorrow. Labs reviewed. Phosphorus binders ordered. Blood pressure stable. Continue per consultants. April 23: Patient had dialysis this morning and 2 L removed. No labs drawn today. Will check the renal parameters tomorrow. Blood pressure stable. Medication list reviewed. Continue per consultants. April 22: Will order dialysis again tomorrow. Labs reviewed. Potassium 5.8. Kayexalate ordered. Blood pressure medication adjusted. Continue per consultants. April 21: Patient seen. Labs reviewed. Potassium 5.7. Kayexalate given. Patient receives dialysis Sunday however dialysis for today is ordered. Blood pressure appears to be under control. Continue per consultants. Blood pressure management 2D echocardiogram Antibiotics Dialysis as needed Per orders Subjective ROS Limited/Unobtainable: No Constitutional: Reports: malaise, other - Wants to go home Objective Objective Last 24 Hour Vital Signs Date Time Temp Pulse Resp B/P (MAP) Pulse Ox O2 Delivery O2 Flow Rate FiO2 04/27/20 09:26 69 147/85 04/27/20 09:26 69 147/85 04/27/20 09:00 Room Air 04/27/20 08:00 98.0 78 18 147/85 (105) 98 04/27/20 08:00 69 04/27/20 04:00 97.2 68 16 120/70 (87) 96 04/27/20 04:00 61 04/27/20 00:00 63 04/27/20 00:00 97.6 68 16 130/70 (90) 95 04/26/20 21:00 Room Air 04/26/20 20:34 73 155/82 04/26/20 20:00 98.1 73 16 155/82 (106) 97 04/26/20 20:00 66 04/26/20 16:00 67 04/26/20 16:00 98.4 68 20 128/83 (98) 99 04/26/20 12:00 61 04/26/20 12:00 97.9 64 20 137/71 (93) 97 Intake and Output 04/26/20 04/27/20 19:00 07:00 Intake Total 1130 ml 240 ml Balance 1130 ml 240 ml Intake Oral 1130 ml 240 ml # Voids 9 2 # Bowel Movements 1 Current Medications Medications (Trade) Dose Ordered Sig/Shweta Route PRN Reason Start Time Stop Time Status Last Admin Dose Admin Acetaminophen (Tylenol) 650 mg Q4H PRN ORAL pain 04/20/20 15:00 05/20/20 14:59 Amlodipine Besylate (Norvasc) 10 mg DAILY ORAL 04/20/20 15:00 05/20/20 14:59 04/27/20 09:26 Clonidine HCl (Catapres Tab) 0.1 mg Q4H PRN ORAL BP over 160 systolic 04/22/20 12:45 07/21/20 12:44 04/25/20 20:36 Docusate Sodium (Colace) 100 mg THREE TIMES A DAY ORAL 04/20/20 18:00 05/20/20 17:59 04/27/20 09:26 Metoclopramide HCl (Reglan) 5 mg THREE TIMES A DAY ORAL 04/22/20 13:00 05/22/20 12:59 04/27/20 09:26 Metoprolol Tartrate (Lopressor) 25 mg Q12HR ORAL 04/24/20 21:00 07/23/20 20:59 04/27/20 09:26 Ondansetron HCl (Zofran) 4 mg Q6H PRN IVP Nausea & Vomiting 04/20/20 15:00 05/20/20 14:59 Pantoprazole (Protonix) 40 mg EVERY 12 HOURS ORAL 04/20/20 21:00 05/20/20 20:59 04/27/20 09:26 Sevelamer Carbonate (Renvela) 1,600 mg THREE TIMES A DAY ORAL 04/24/20 14:45 07/23/20 14:44 04/27/20 09:26 Laboratory Tests 04/27/20 10:00: White Blood Count [Pending], Red Blood Count [Pending], Hemoglobin [Pending], Hematocrit [Pending], Mean Corpuscular Volume [Pending], Mean Corpuscular Hemoglobin [Pending], Mean Corpuscular Hemoglobin Concent [Pending], Red Cell Distribution Width [Pending], Platelet Count [Pending], Mean Platelet Volume [Pending], Neutrophils (%) (Auto) [Pending], Lymphocytes (%) (Auto) [Pending], Monocytes (%) (Auto) [Pending], Eosinophils (%) (Auto) [Pending], Basophils (%) (Auto) [Pending], Sodium Level [Pending], Potassium Level [Pending], Chloride Level [Pending], Carbon Dioxide Level [Pending], Blood Urea Nitrogen [Pending], Creatinine [Pending], Estimat Glomerular Filtration Rate [Pending], Glucose Level [Pending], Calcium Level [Pending], Phosphorus Level [Pending], Magnesium Level [Pending], Total Bilirubin [Pending], Direct Bilirubin [Pending], [place] Amino Transf (AST/SGOT) [Pending], Alanine Aminotransferase (ALT/SGPT) [Pending], Alkaline Phosphatase [Pending], Total Protein [Pending], Albumin [Pending] Height (Feet): 5 Height (Inches): 6.00 Weight (Pounds): 185 General Appearance: no apparent distress Cardiovascular: normal rate Respiratory/Chest: lungs clear Abdomen: soft Braulio Humphrey MD Apr 27, 2020 10:36
--- NOTE | 2020-04-27 10:44 | NUR ---
RD ASSESSMENT & RECOMMENDATIONS SEE CARE ACTIVITY FOR COMPLETE ASSESSMENT DAILY ESTIMATED NEEDS: Needs based on ESRD on HD 71kg abw 25-30 kcals/kg [id number] total kcals 1.2-1.8 g protein/kg 85-128 g total protein Fluid per MD, on HD NUTRITION DIAGNOSIS: Increased pro needs r/t renal dysfunction as evidenced by ESRD on HD. CURRENT DIET:Renal diet PO DIET RECOMMENDATIONS: Maintain Renal diet ADDITIONAL RECOMMENDATIONS: 1) Obtain a standing weight as able 2) Add NEPRO 1 tetra qdaily (19g pro) 3) Accuchecks, BG monitoring
[2020-04-27 10:46] LABS: BASOPHILS % (AUTO) 1.1 % (0.0-2.0); EOSINOPHILS % (AUTO) 2.1 % (0.0-3.0); HEMATOCRIT 30.5 % (42.0-52.0); HEMOGLOBIN 10.2 G/DL (14.2-18.0); LYMPHOCYTES % (AUTO) 16.7 % (20.0-45.0); MEAN CORPUSCULAR VOLUME 97 FL (80-99); MONOCYTES % (AUTO) 10.7 % (1.0-10.0); NEUTROPHILS % (AUTO) 69.5 % (45.0-75.0); PLATELET COUNT 247 K/UL (150-450); RED BLOOD COUNT 3.15 M/UL (4.70-6.10); RED CELL DISTRIBUTION WIDTH 12.5 % (11.6-14.8); WHITE BLOOD COUNT 8.5 K/UL (4.8-10.8)
[2020-04-27 11:02] LABS: CALCIUM 8.4 MG/DL (8.5-10.1); POTASSIUM 4.9 MMOL/L (3.5-5.1)
[2020-04-27 11:09] LABS: ALANINE AMINOTRANSFERASE 27 U/L (12-78); ALKALINE PHOSPHATASE 84 U/L (46-116); ASPARTATE AMINO TRANSFERASE 17 U/L (15-37); BILIRUBIN,DIRECT 0.2 MG/DL (0.0-0.3); BILIRUBIN,TOTAL 0.4 MG/DL (0.2-1.0); PHOSPHORUS 6.3 MG/DL (2.5-4.9)
--- NOTE | 2020-04-27 11:36 | Cardiac Electrophysiology PN ---
Assessment/Plan Assessment/Plan 1. Hypertension. Continue amlodipine 10 mg daily, Metoprolol 25 po bid, HD and p.r.n. clonidine 2. Atypical chest pain due to volume overload. Two troponins are negative. EKG >> No ischemic changes. 3. End-stage renal disease, on hemodialysis. 4. Tachycardia, improved. 5. Generalized weakness and urinary tract infection DW RN DC after HD today Subjective Subjective Scheduled for DC after HFD today. On RA. No CP. Objective Last 24 Hour Vital Signs Date Time Temp Pulse Resp B/P (MAP) Pulse Ox O2 Delivery O2 Flow Rate FiO2 04/27/20 09:26 69 147/85 04/27/20 09:26 69 147/85 04/27/20 09:00 Room Air 04/27/20 08:00 98.0 78 18 147/85 (105) 98 04/27/20 08:00 69 04/27/20 04:00 97.2 68 16 120/70 (87) 96 04/27/20 04:00 61 04/27/20 00:00 63 04/27/20 00:00 97.6 68 16 130/70 (90) 95 04/26/20 21:00 Room Air 04/26/20 20:34 73 155/82 04/26/20 20:00 98.1 73 16 155/82 (106) 97 04/26/20 20:00 66 04/26/20 16:00 67 04/26/20 16:00 98.4 68 20 128/83 (98) 99 04/26/20 12:00 61 04/26/20 12:00 97.9 64 20 137/71 (93) 97 Intake and Output 04/26/20 04/27/20 19:00 07:00 Intake Total 1130 ml 240 ml Balance 1130 ml 240 ml Intake Oral 1130 ml 240 ml # Voids 9 2 # Bowel Movements 1 Laboratory Tests Test 04/27/20 10:00 White Blood Count 8.5 K/UL (4.8-10.8) Red Blood Count 3.15 M/UL (4.70-6.10) L Hemoglobin 10.2 G/DL (14.2-18.0) L Hematocrit 30.5 % (42.0-52.0) L Mean Corpuscular Volume 97 FL (80-99) Mean Corpuscular Hemoglobin 32.4 PG (27.0-31.0) H Mean Corpuscular Hemoglobin Concent 33.5 G/DL (32.0-36.0) Red Cell Distribution Width 12.5 % (11.6-14.8) Platelet Count 247 K/UL (150-450) Mean Platelet Volume 5.7 FL (6.5-10.1) L Neutrophils (%) (Auto) 69.5 % (45.0-75.0) Lymphocytes (%) (Auto) 16.7 % (20.0-45.0) L Monocytes (%) (Auto) 10.7 % (1.0-10.0) H Eosinophils (%) (Auto) 2.1 % (0.0-3.0) Basophils (%) (Auto) 1.1 % (0.0-2.0) Sodium Level 140 MMOL/L (136-145) Potassium Level 4.9 MMOL/L (3.5-5.1) Chloride Level 101 MMOL/L (98-107) Carbon Dioxide Level 23 MMOL/L (21-32) Anion Gap 16 mmol/L (5-15) H Blood Urea Nitrogen 94 mg/dL (7-18) H Creatinine 14.0 MG/DL (0.55-1.30) H Estimat Glomerular Filtration Rate 3.7 mL/min (>60) Glucose Level 136 MG/DL (74-106) H Calcium Level 8.4 MG/DL (8.5-10.1) L Phosphorus Level 6.3 MG/DL (2.5-4.9) H Magnesium Level 2.5 MG/DL (1.8-2.4) H Total Bilirubin 0.4 MG/DL (0.2-1.0) Direct Bilirubin 0.2 MG/DL (0.0-0.3) Aspartate Amino Transf (AST/SGOT) 17 U/L (15-37) Alanine Aminotransferase (ALT/SGPT) 27 U/L (12-78) Alkaline Phosphatase 84 U/L (46-116) Total Protein 7.3 G/DL (6.4-8.2) Albumin 4.0 G/DL (3.4-5.0) Objective HEAD AND NECK: No JVD. LUNGS: Clear. CARDIOVASCULAR: regular S1 and S2 with no gallop or murmur. ABDOMEN: Soft. EXTREMITIES: No pitting edema. uSndeep Slaughter MD Apr 27, 2020 11:36
[2020-04-27 12:00] VITALS: BP 141/78
--- NOTE | 2020-04-27 14:06 | General Progress Note ---
Subjective Constitutional: Reports: weakness Allergies: Coded Allergies: No Known Allergies (Unverified , 04/20/20) All Systems: reviewed and negative except above Subjective sleepy calm in bed Objective Last 24 Hour Vital Signs Date Time Temp Pulse Resp B/P (MAP) Pulse Ox O2 Delivery O2 Flow Rate FiO2 04/27/20 09:26 69 147/85 04/27/20 09:26 69 147/85 04/27/20 09:00 Room Air 04/27/20 08:00 98.0 78 18 147/85 (105) 98 04/27/20 08:00 69 04/27/20 04:00 97.2 68 16 120/70 (87) 96 04/27/20 04:00 61 04/27/20 00:00 63 04/27/20 00:00 97.6 68 16 130/70 (90) 95 04/26/20 21:00 Room Air 04/26/20 20:34 73 155/82 04/26/20 20:00 98.1 73 16 155/82 (106) 97 04/26/20 20:00 66 04/26/20 16:00 67 04/26/20 16:00 98.4 68 20 128/83 (98) 99 Intake and Output 04/26/20 04/27/20 19:00 07:00 Intake Total 1130 ml 240 ml Balance 1130 ml 240 ml Intake Oral 1130 ml 240 ml # Voids 9 2 # Bowel Movements 1 Laboratory Tests 04/27/20 10:00: White Blood Count 8.5, Red Blood Count 3.15L, Hemoglobin 10.2L, Hematocrit 30.5L , Mean Corpuscular Volume 97, Mean Corpuscular Hemoglobin 32.4H, Mean Corpuscular Hemoglobin Concent 33.5, Red Cell Distribution Width 12.5, Platelet Count 247, Mean Platelet Volume 5.7L, Neutrophils (%) (Auto) 69.5, Lymphocytes (%) (Auto) 16.7L, Monocytes (%) (Auto) 10.7H, Eosinophils (%) (Auto) 2.1, Basophils (%) (Auto) 1.1, Sodium Level 140, Potassium Level 4.9, Chloride Level 101, Carbon Dioxide Level 23, Anion Gap 16H, Blood Urea Nitrogen 94H, Creatinine 14.0H, Estimat Glomerular Filtration Rate 3.7, Glucose Level 136H, Calcium Level 8.4L, Phosphorus Level 6.3H, Magnesium Level 2.5H, Total Bilirubin 0.4, Direct Bilirubin 0.2, Aspartate Amino Transf (AST/SGOT) 17, Alanine Aminotransferase (ALT/SGPT) 27, Alkaline Phosphatase 84, Total Protein 7.3, Albumin 4.0 Height (Feet): 5 Height (Inches): 6.00 Weight (Pounds): 185 General Appearance: lethargic EENT: normal ENT inspection Neck: normal alignment Cardiovascular: normal peripheral pulses, normal rate, regular rhythm Respiratory/Chest: chest wall non-tender, lungs clear, normal breath sounds Abdomen: normal bowel sounds, non tender, soft Extremities: normal inspection Edema: no edema noted Arm (L), no edema noted Arm (R), no edema noted Leg (L), no edema noted Leg (R), no edema noted Pedal (L), no edema noted Pedal (R), no edema noted Generalized Neurologic: motor weakness Skin: normal pigmentation, warm/dry Assessment/Plan Problem List: (1) ESRD (end stage renal disease) ICD Codes: N18.6 - End stage renal disease SNOMED: 57980678 (2) Anemia ICD Codes: D64.9 - Anemia, unspecified SNOMED: 708701431 (3) HTN (hypertension) ICD Codes: I10 - Essential (primary) hypertension SNOMED: 69784327 (4) Urinary tract infection ICD Codes: N39.0 - Urinary tract infection, site not specified SNOMED: 29108680 (5) Weakness ICD Codes: R53.1 - Weakness SNOMED: 61306251 Status: stable, progressing, unchanged Assessment/Plan: pt diet abx dialysis dc if clear Miguel Son DO Apr 27, 2020 14:06
[2020-04-27 16:00] VITALS: BP 136/75
--- NOTE | 2020-04-27 17:41 | NUR ---
NURSE NOTES: pt is for discharge after dialysis, dialysis treatment completed, med list not completed, call placed to Dr Flores in regards to pt med list and message left, awaiting to call back. Addendum: 04/27/20 at 1808 by DEMAR ELLIS RN received an instructions from dr flores to fax pt med list to his pharmacy, called [facility] tel# [phone], and spoke to the pharmacist and according to him, prescription need to be fax to them, notified dr flores.
--- NOTE | 2020-04-27 19:31 | NUR ---
NURSE NOTES: received patient resting comfortable in bed with no signs of distress. per day RN, patient was suppose to be discharge today but physician did not write discharge prescription for patient so the patient will be discharge tomorrow. bed in low position. call watkins within reach, will continue to monitor.
[2020-04-27 20:00] VITALS: BP 152/86
[2020-04-28] VITALS: BP 147/85
[2020-04-28 04:00] VITALS: BP 114/66
--- NOTE | 2020-04-28 06:30 | Consultation ---
History of Present Illness General Chief Complaint: General Complaint Reason for Consultation: UTI Present Illness Allergies: Coded Allergies: No Known Allergies (Unverified , 04/20/20) Medication History Scheduled Amlodipine Besylate* (Amlodipine Besylate*), 10 MG ORAL DAILY, (Reported) Atorvastatin Calcium* (Atorvastatin Calcium*), 20 MG ORAL BEDTIME, (Reported) Calcium Acetate (Calcium Acetate), 1,334 MG PO TID, (Reported) Isosorbide Mononitrate (Isosorbide Mononitrate Er), 30 MG PO DAILY, (Reported) Vit B Cmplx 3/Fa/Vit C/Biotin (Ba[facility] Rx Tablet), 1 EACH PO DAILY, (Reported) Patient History Healthcare decision maker Resuscitation status Advanced Directive on File Physical Exam Last 24 Hour Vital Signs Date Time Temp Pulse Resp B/P (MAP) Pulse Ox O2 Delivery O2 Flow Rate FiO2 04/28/20 04:00 98.0 66 18 114/66 (82) 95 04/28/20 04:00 59 04/28/20 00:00 67 04/28/20 00:00 98.2 66 24 147/85 (105) 92 04/27/20 21:00 Room Air 04/27/20 20:30 75 152/86 04/27/20 20:00 74 04/27/20 20:00 98.1 75 20 152/86 (108) 96 04/27/20 16:00 97.9 66 18 136/75 (95) 96 04/27/20 16:00 70 04/27/20 12:00 97.7 68 18 141/78 (99) 97 04/27/20 12:00 65 04/27/20 09:26 69 147/85 04/27/20 09:26 69 147/85 04/27/20 09:00 Room Air 04/27/20 08:00 98.0 78 18 147/85 (105) 98 04/27/20 08:00 69 Intake and Output 04/27/20 04/28/20 19:00 07:00 Intake Total 840 ml 240 ml Balance 840 ml 240 ml Intake Oral 840 ml 240 ml # Voids 3 2 # Bowel Movements 1 Laboratory Tests Test 04/27/20 10:00 White Blood Count 8.5 K/UL (4.8-10.8) Red Blood Count 3.15 M/UL (4.70-6.10) L Hemoglobin 10.2 G/DL (14.2-18.0) L Hematocrit 30.5 % (42.0-52.0) L Mean Corpuscular Volume 97 FL (80-99) Mean Corpuscular Hemoglobin 32.4 PG (27.0-31.0) H Mean Corpuscular Hemoglobin Concent 33.5 G/DL (32.0-36.0) Red Cell Distribution Width 12.5 % (11.6-14.8) Platelet Count 247 K/UL (150-450) Mean Platelet Volume 5.7 FL (6.5-10.1) L Neutrophils (%) (Auto) 69.5 % (45.0-75.0) Lymphocytes (%) (Auto) 16.7 % (20.0-45.0) L Monocytes (%) (Auto) 10.7 % (1.0-10.0) H Eosinophils (%) (Auto) 2.1 % (0.0-3.0) Basophils (%) (Auto) 1.1 % (0.0-2.0) Sodium Level 140 MMOL/L (136-145) Potassium Level 4.9 MMOL/L (3.5-5.1) Chloride Level 101 MMOL/L (98-107) Carbon Dioxide Level 23 MMOL/L (21-32) Anion Gap 16 mmol/L (5-15) H Blood Urea Nitrogen 94 mg/dL (7-18) H Creatinine 14.0 MG/DL (0.55-1.30) H Estimat Glomerular Filtration Rate 3.7 mL/min (>60) Glucose Level 136 MG/DL (74-106) H Calcium Level 8.4 MG/DL (8.5-10.1) L Phosphorus Level 6.3 MG/DL (2.5-4.9) H Magnesium Level 2.5 MG/DL (1.8-2.4) H Total Bilirubin 0.4 MG/DL (0.2-1.0) Direct Bilirubin 0.2 MG/DL (0.0-0.3) Aspartate Amino Transf (AST/SGOT) 17 U/L (15-37) Alanine Aminotransferase (ALT/SGPT) 27 U/L (12-78) Alkaline Phosphatase 84 U/L (46-116) Total Protein 7.3 G/DL (6.4-8.2) Albumin 4.0 G/DL (3.4-5.0) Height (Feet): 5 Height (Inches): 6.00 Weight (Pounds): 185 Medications Current Medications Medications (Trade) Dose Ordered Sig/Shweta Route PRN Reason Start Time Stop Time Status Last Admin Dose Admin Acetaminophen (Tylenol) 650 mg Q4H PRN ORAL pain 04/20/20 15:00 05/20/20 14:59 Amlodipine Besylate (Norvasc) 10 mg DAILY ORAL 04/20/20 15:00 05/20/20 14:59 04/27/20 09:26 Clonidine HCl (Catapres Tab) 0.1 mg Q4H PRN ORAL BP over 160 systolic 04/22/20 12:45 07/21/20 12:44 04/25/20 20:36 Docusate Sodium (Colace) 100 mg THREE TIMES A DAY ORAL 04/20/20 18:00 05/20/20 17:59 04/27/20 18:03 Metoclopramide HCl (Reglan) 5 mg THREE TIMES A DAY ORAL 04/22/20 13:00 05/22/20 12:59 04/27/20 18:03 Metoprolol Tartrate (Lopressor) 25 mg Q12HR ORAL 04/24/20 21:00 07/23/20 20:59 04/27/20 20:30 Ondansetron HCl (Zofran) 4 mg Q6H PRN IVP Nausea & Vomiting 04/20/20 15:00 05/20/20 14:59 Pantoprazole (Protonix) 40 mg EVERY 12 HOURS ORAL 04/20/20 21:00 05/20/20 20:59 04/27/20 20:29 Sevelamer Carbonate (Renvela) 1,600 mg THREE TIMES A DAY ORAL 04/24/20 14:45 07/23/20 14:44 04/27/20 18:03 Assessment/Plan Assessment/Plan: Hematology Consultation PETER MUSE: Luis Miguel Son RFC: Anemia ongoing ID Patient is a 54-year-old male brought in by EMS after increased dizziness and body aches and chills. Patient had been recently dialyzed. Denies any prior history of diabetes. History of end-stage renal disease but does currently make urine. Had prior history of cardiac disease but does not know what medications he takes. Also has hypertension for which he takes Norvasc. Prehospital EKG showed sinus tachycardia with a rate approximately 100.Patient states that he had not previously had any heart attack. Normally is dialyzed Sunday. Reportedly still makes urine. Onset of symptoms while eating at [employer]. Denies any abdominal pain or vomiting. With a hgb that continues to d own trend and heme consulted for eval. Coded Allergies: No Known Allergies (Unverified , 04/20/20) Patient History Past Medical History: see triage record Reviewed Nursing Documentation: PMH: Agreed; PSxH: Agreed Review of Systems All Other Systems: negative except mentioned in HPI Physical Exam Sp02 EP Interpretation: reviewed, normal General Appearance: normal inspection, well appearing, no apparent distress, alert, GCS 15 Head: atraumatic ENT: normal ENT inspection, hearing grossly normal, normal voice Neck: normal inspection, full range of motion, supple, no bony tend Respiratory: normal inspection, lungs clear, normal breath sounds Cardiovascular: regular rate, rhythm, no edema Gastrointestinal: normal inspection, normal bowel sounds Genitourinary: no CVA tenderness Musculoskeletal: normal inspection, back normal, normal range of motion Neurologic: alert, motor strength/tone normal, heat treating operator III-XII nml as tested, oriented x3, responsive, speech normal, normal inspection Psychiatric: normal inspection, judgement/insight normal Labs: reviewed Imaging: noted Assessment and Recs # Anemia due to chronic kidney disease --> hgb trend as needed --> transfuse on prn basis --> hgb 11-->10.2 --> no hemolysis is noted at this time # Leukocytosis r/o infection --> wbc 11-->8 --> abx as per id # Weakness --> pt/ot # Urinary tract infection --> abx per id # Atypical cp and Abnormal EKG --> as per cards # Dvt ppx scds Appreciate consultation and dw Jos Rock MD Apr 28, 2020 06:30
--- NOTE | 2020-04-28 07:11 | NUR ---
NURSE HAND-OFF REPORT: Important Events on Shift:patient resting comfortable in bed with no signs of distress. no complains. possibly discharge today. received dialysis yesterday. Patient Status: full Diet: renal Pending Orders: Pending Results/Labs: Pending MD notification: Latest Vital Signs: Temperature 98.0 , Pulse 59 , B/P 114 /66 , Respiratory Rate 18 , O2 SAT 95 , Room Air, O2 Flow Rate . Vital Sign Comment: EKG Rhythm: Sinus Bradycardia Rhythm change?: N MD Notified?: - MD Response: Latest [place]rr[place]ia Fall Score: 20 Fall Risk: Low Risk Safety Measures: Call light Within Reach, Bed Alarm Zone 2, Side Rails Side Rails x2, Bed position Low and Locked. Fall Precautions: Yellow Socks Yellow Gown Patient Fall Education Report given to Ariel KEBEDE
[2020-04-28 08:00] VITALS: BP 146/92
--- NOTE | 2020-04-28 08:07 | Infectious Diseases Prog Note ---
Assessment/Plan 54 yo male with PMHx of ESRD on HD and HTN who presented to the ED on 04/20/20 with bodyaches and chills. Sepsis, Sp UTI UA (+) UCx 04/20/20 - NGTD Leukocytosis, Sp No fever ESRD on HD HTN PLAN - Monitor off abx as he is stable - 04/22/20 SP Ceftriaxone #/ - Monitor CBC and Temps Thank you for this consult. [facility] will continue to follow Mr. Fish with you dueing this hospitalization. Subjective Allergies: Coded Allergies: No Known Allergies (Unverified , 04/20/20) Afebrile No leukocytosis Feels fine Objective Last 24 Hour Vital Signs Date Time Temp Pulse Resp B/P (MAP) Pulse Ox O2 Delivery O2 Flow Rate FiO2 04/28/20 04:00 98.0 66 18 114/66 (82) 95 04/28/20 04:00 59 04/28/20 00:00 67 04/28/20 00:00 98.2 66 24 147/85 (105) 92 04/27/20 21:00 Room Air 04/27/20 20:30 75 152/86 04/27/20 20:00 74 04/27/20 20:00 98.1 75 20 152/86 (108) 96 04/27/20 16:00 97.9 66 18 136/75 (95) 96 04/27/20 16:00 70 04/27/20 12:00 97.7 68 18 141/78 (99) 97 04/27/20 12:00 65 04/27/20 09:26 69 147/85 04/27/20 09:26 69 147/85 04/27/20 09:00 Room Air Height (Feet): 5 Height (Inches): 6.00 Weight (Pounds): 185 Gen: NAD HEENT: NCAT, MMM, EOMI, No scleral icterus Pulm: RRR, No accessory mescle use Abd: Soft, ND Laboratory Tests Test 04/27/20 10:00 White Blood Count 8.5 K/UL (4.8-10.8) Red Blood Count 3.15 M/UL (4.70-6.10) L Hemoglobin 10.2 G/DL (14.2-18.0) L Hematocrit 30.5 % (42.0-52.0) L Mean Corpuscular Volume 97 FL (80-99) Mean Corpuscular Hemoglobin 32.4 PG (27.0-31.0) H Mean Corpuscular Hemoglobin Concent 33.5 G/DL (32.0-36.0) Red Cell Distribution Width 12.5 % (11.6-14.8) Platelet Count 247 K/UL (150-450) Mean Platelet Volume 5.7 FL (6.5-10.1) L Neutrophils (%) (Auto) 69.5 % (45.0-75.0) Lymphocytes (%) (Auto) 16.7 % (20.0-45.0) L Monocytes (%) (Auto) 10.7 % (1.0-10.0) H Eosinophils (%) (Auto) 2.1 % (0.0-3.0) Basophils (%) (Auto) 1.1 % (0.0-2.0) Sodium Level 140 MMOL/L (136-145) Potassium Level 4.9 MMOL/L (3.5-5.1) Chloride Level 101 MMOL/L (98-107) Carbon Dioxide Level 23 MMOL/L (21-32) Anion Gap 16 mmol/L (5-15) H Blood Urea Nitrogen 94 mg/dL (7-18) H Creatinine 14.0 MG/DL (0.55-1.30) H Estimat Glomerular Filtration Rate 3.7 mL/min (>60) Glucose Level 136 MG/DL (74-106) H Calcium Level 8.4 MG/DL (8.5-10.1) L Phosphorus Level 6.3 MG/DL (2.5-4.9) H Magnesium Level 2.5 MG/DL (1.8-2.4) H Total Bilirubin 0.4 MG/DL (0.2-1.0) Direct Bilirubin 0.2 MG/DL (0.0-0.3) Aspartate Amino Transf (AST/SGOT) 17 U/L (15-37) Alanine Aminotransferase (ALT/SGPT) 27 U/L (12-78) Alkaline Phosphatase 84 U/L (46-116) Total Protein 7.3 G/DL (6.4-8.2) Albumin 4.0 G/DL (3.4-5.0) Current Medications Medications (Trade) Dose Ordered Sig/Shweta Route PRN Reason Start Time Stop Time Status Last Admin Dose Admin Acetaminophen (Tylenol) 650 mg Q4H PRN ORAL pain 04/20/20 15:00 05/20/20 14:59 Amlodipine Besylate (Norvasc) 10 mg DAILY ORAL 04/20/20 15:00 05/20/20 14:59 04/27/20 09:26 Clonidine HCl (Catapres Tab) 0.1 mg Q4H PRN ORAL BP over 160 systolic 04/22/20 12:45 07/21/20 12:44 04/25/20 20:36 Docusate Sodium (Colace) 100 mg THREE TIMES A DAY ORAL 04/20/20 18:00 05/20/20 17:59 04/27/20 18:03 Metoclopramide HCl (Reglan) 5 mg THREE TIMES A DAY ORAL 04/22/20 13:00 05/22/20 12:59 04/27/20 18:03 Metoprolol Tartrate (Lopressor) 25 mg Q12HR ORAL 04/24/20 21:00 07/23/20 20:59 04/27/20 20:30 Ondansetron HCl (Zofran) 4 mg Q6H PRN IVP Nausea & Vomiting 04/20/20 15:00 05/20/20 14:59 Pantoprazole (Protonix) 40 mg EVERY 12 HOURS ORAL 04/20/20 21:00 05/20/20 20:59 04/27/20 20:29 Sevelamer Carbonate (Renvela) 1,600 mg THREE TIMES A DAY ORAL 04/24/20 14:45 07/23/20 14:44 04/27/20 18:03 Wale Junior MD Apr 28, 2020 08:07
--- NOTE | 2020-04-28 08:15 | Cardiac Electrophysiology PN ---
Assessment/Plan Assessment/Plan 1. Hypertension. Continue amlodipine 10 mg daily, Metoprolol 25 po bid, HD and p.r.n. clonidine 2. Atypical chest pain due to volume overload. Two troponins are negative. EKG >> No ischemic changes. 3. End-stage renal disease, on hemodialysis. 4. Tachycardia, improved. 5. Generalized weakness and urinary tract infection DW RN OK to DC Cardiac prescriptions given Subjective Subjective Had HD yesterday. Awaiting DC today. On RA. No CP. Objective Last 24 Hour Vital Signs Date Time Temp Pulse Resp B/P (MAP) Pulse Ox O2 Delivery O2 Flow Rate FiO2 04/28/20 04:00 98.0 66 18 114/66 (82) 95 04/28/20 04:00 59 04/28/20 00:00 67 04/28/20 00:00 98.2 66 24 147/85 (105) 92 04/27/20 21:00 Room Air 04/27/20 20:30 75 152/86 04/27/20 20:00 74 04/27/20 20:00 98.1 75 20 152/86 (108) 96 04/27/20 16:00 97.9 66 18 136/75 (95) 96 04/27/20 16:00 70 04/27/20 12:00 97.7 68 18 141/78 (99) 97 04/27/20 12:00 65 04/27/20 09:26 69 147/85 04/27/20 09:26 69 147/85 04/27/20 09:00 Room Air Intake and Output 04/27/20 04/28/20 19:00 07:00 Intake Total 840 ml 240 ml Balance 840 ml 240 ml Intake Oral 840 ml 240 ml # Voids 3 2 # Bowel Movements 1 Laboratory Tests Test 04/27/20 10:00 White Blood Count 8.5 K/UL (4.8-10.8) Red Blood Count 3.15 M/UL (4.70-6.10) L Hemoglobin 10.2 G/DL (14.2-18.0) L Hematocrit 30.5 % (42.0-52.0) L Mean Corpuscular Volume 97 FL (80-99) Mean Corpuscular Hemoglobin 32.4 PG (27.0-31.0) H Mean Corpuscular Hemoglobin Concent 33.5 G/DL (32.0-36.0) Red Cell Distribution Width 12.5 % (11.6-14.8) Platelet Count 247 K/UL (150-450) Mean Platelet Volume 5.7 FL (6.5-10.1) L Neutrophils (%) (Auto) 69.5 % (45.0-75.0) Lymphocytes (%) (Auto) 16.7 % (20.0-45.0) L Monocytes (%) (Auto) 10.7 % (1.0-10.0) H Eosinophils (%) (Auto) 2.1 % (0.0-3.0) Basophils (%) (Auto) 1.1 % (0.0-2.0) Sodium Level 140 MMOL/L (136-145) Potassium Level 4.9 MMOL/L (3.5-5.1) Chloride Level 101 MMOL/L (98-107) Carbon Dioxide Level 23 MMOL/L (21-32) Anion Gap 16 mmol/L (5-15) H Blood Urea Nitrogen 94 mg/dL (7-18) H Creatinine 14.0 MG/DL (0.55-1.30) H Estimat Glomerular Filtration Rate 3.7 mL/min (>60) Glucose Level 136 MG/DL (74-106) H Calcium Level 8.4 MG/DL (8.5-10.1) L Phosphorus Level 6.3 MG/DL (2.5-4.9) H Magnesium Level 2.5 MG/DL (1.8-2.4) H Total Bilirubin 0.4 MG/DL (0.2-1.0) Direct Bilirubin 0.2 MG/DL (0.0-0.3) Aspartate Amino Transf (AST/SGOT) 17 U/L (15-37) Alanine Aminotransferase (ALT/SGPT) 27 U/L (12-78) Alkaline Phosphatase 84 U/L (46-116) Total Protein 7.3 G/DL (6.4-8.2) Albumin 4.0 G/DL (3.4-5.0) Objective HEAD AND NECK: No JVD. LUNGS: Clear. CARDIOVASCULAR: regular S1 and S2 with no gallop or murmur. ABDOMEN: Soft. EXTREMITIES: No pitting edema. Sundeep Slaughter MD Apr 28, 2020 08:14
--- NOTE | 2020-04-28 09:06 | General Progress Note ---
Subjective Constitutional: Reports: weakness Allergies: Coded Allergies: No Known Allergies (Unverified , 04/20/20) All Systems: reviewed and negative except above Subjective sleepy calm in bed Objective Last 24 Hour Vital Signs Date Time Temp Pulse Resp B/P (MAP) Pulse Ox O2 Delivery O2 Flow Rate FiO2 04/28/20 08:00 97.9 71 20 146/92 (110) 97 04/28/20 08:00 67 04/28/20 04:00 98.0 66 18 114/66 (82) 95 04/28/20 04:00 59 04/28/20 00:00 67 04/28/20 00:00 98.2 66 24 147/85 (105) 92 04/27/20 21:00 Room Air 04/27/20 20:30 75 152/86 04/27/20 20:00 74 04/27/20 20:00 98.1 75 20 152/86 (108) 96 04/27/20 16:00 97.9 66 18 136/75 (95) 96 04/27/20 16:00 70 04/27/20 12:00 97.7 68 18 141/78 (99) 97 04/27/20 12:00 65 04/27/20 09:26 69 147/85 04/27/20 09:26 69 147/85 Intake and Output 04/27/20 04/28/20 19:00 07:00 Intake Total 840 ml 240 ml Balance 840 ml 240 ml Intake Oral 840 ml 240 ml # Voids 3 2 # Bowel Movements 1 Laboratory Tests 04/27/20 10:00: White Blood Count 8.5, Red Blood Count 3.15L, Hemoglobin 10.2L, Hematocrit 30.5L , Mean Corpuscular Volume 97, Mean Corpuscular Hemoglobin 32.4H, Mean Corpuscular Hemoglobin Concent 33.5, Red Cell Distribution Width 12.5, Platelet Count 247, Mean Platelet Volume 5.7L, Neutrophils (%) (Auto) 69.5, Lymphocytes (%) (Auto) 16.7L, Monocytes (%) (Auto) 10.7H, Eosinophils (%) (Auto) 2.1, Basophils (%) (Auto) 1.1, Sodium Level 140, Potassium Level 4.9, Chloride Level 101, Carbon Dioxide Level 23, Anion Gap 16H, Blood Urea Nitrogen 94H, Creatinine 14.0H, Estimat Glomerular Filtration Rate 3.7, Glucose Level 136H, Calcium Level 8.4L, Phosphorus Level 6.3H, Magnesium Level 2.5H, Total Bilirubin 0.4, Direct Bilirubin 0.2, Aspartate Amino Transf (AST/SGOT) 17, Alanine Aminotransferase (ALT/SGPT) 27, Alkaline Phosphatase 84, Total Protein 7.3, Albumin 4.0 Height (Feet): 5 Height (Inches): 6.00 Weight (Pounds): 185 General Appearance: lethargic EENT: normal ENT inspection Neck: normal alignment Cardiovascular: normal peripheral pulses, normal rate, regular rhythm Respiratory/Chest: chest wall non-tender, lungs clear, normal breath sounds Abdomen: normal bowel sounds, non tender, soft Extremities: normal inspection Edema: no edema noted Arm (L), no edema noted Arm (R), no edema noted Leg (L), no edema noted Leg (R), no edema noted Pedal (L), no edema noted Pedal (R), no edema noted Generalized Neurologic: motor weakness Skin: normal pigmentation, warm/dry Assessment/Plan Problem List: (1) ESRD (end stage renal disease) ICD Codes: N18.6 - End stage renal disease SNOMED: 83317264 (2) Anemia ICD Codes: D64.9 - Anemia, unspecified SNOMED: 096097178 (3) HTN (hypertension) ICD Codes: I10 - Essential (primary) hypertension SNOMED: 93959923 (4) Urinary tract infection ICD Codes: N39.0 - Urinary tract infection, site not specified SNOMED: 22728004 (5) Weakness ICD Codes: R53.1 - Weakness SNOMED: 35145080 Status: stable, progressing, unchanged Assessment/Plan: pt diet abx dialysis cbc bmp am dc if clear Miguel Son DO Apr 28, 2020 09:06
[2020-04-28 09:25] VITALS: BP 146/92
[2020-04-28] MEDS ORDERED: LOPRESSOR25 M1 ORAL (09:25)
[2020-04-28] MEDS: Docusate 100mg cap ORAL SCH (09:25)
[2020-04-28] MEDS ORDERED: COLACE100 MG ORAL (09:25)
--- NOTE | 2020-04-28 09:26 | Nephrology Progress Note ---
Assessment/Plan Problem List: (1) ESRD (end stage renal disease) (2) HTN (hypertension) (3) Urinary tract infection (4) Anemia Assessment UTI ESRD Hypertension Anemia Plan April 28: Patient dialyzed yesterday. Medication list reviewed. Patient is stable for discharge. Discharge medication reconciled. April 27: Due for dialysis today. Labs and medication list reviewed. Stable for discharge after dialysis from renal standpoint of view. April 26: Dialyzed yesterday. Labs and medication list reviewed. Due for dialysis tomorrow. April 25: Patient currently on dialysis. Tolerating well. Labs reviewed and medication list reviewed. April 24: Patient due for dialysis tomorrow. Labs reviewed. Phosphorus binders ordered. Blood pressure stable. Continue per consultants. April 23: Patient had dialysis this morning and 2 L removed. No labs drawn today. Will check the renal parameters tomorrow. Blood pressure stable. Medication list reviewed. Continue per consultants. April 22: Will order dialysis again tomorrow. Labs reviewed. Potassium 5.8. Kayexalate ordered. Blood pressure medication adjusted. Continue per consultants. April 21: Patient seen. Labs reviewed. Potassium 5.7. Kayexalate given. Patient receives dialysis Sunday however dialysis for today is ordered. Blood pressure appears to be under control. Continue per consultants. Blood pressure management 2D echocardiogram Antibiotics Dialysis as needed Per orders Subjective ROS Limited/Unobtainable: No Objective Objective Last 24 Hour Vital Signs Date Time Temp Pulse Resp B/P (MAP) Pulse Ox O2 Delivery O2 Flow Rate FiO2 04/28/20 08:00 97.9 71 20 146/92 (110) 97 04/28/20 08:00 67 04/28/20 04:00 98.0 66 18 114/66 (82) 95 04/28/20 04:00 59 04/28/20 00:00 67 04/28/20 00:00 98.2 66 24 147/85 (105) 92 04/27/20 21:00 Room Air 04/27/20 20:30 75 152/86 04/27/20 20:00 74 04/27/20 20:00 98.1 75 20 152/86 (108) 96 04/27/20 16:00 97.9 66 18 136/75 (95) 96 04/27/20 16:00 70 04/27/20 12:00 97.7 68 18 141/78 (99) 97 04/27/20 12:00 65 04/27/20 09:26 69 147/85 04/27/20 09:26 69 147/85 Intake and Output 04/27/20 04/28/20 19:00 07:00 Intake Total 840 ml 240 ml Balance 840 ml 240 ml Intake Oral 840 ml 240 ml # Voids 3 2 # Bowel Movements 1 Current Medications Medications (Trade) Dose Ordered Sig/Shweta Route PRN Reason Start Time Stop Time Status Last Admin Dose Admin Acetaminophen (Tylenol) 650 mg Q4H PRN ORAL pain 04/20/20 15:00 05/20/20 14:59 Amlodipine Besylate (Norvasc) 10 mg DAILY ORAL 04/20/20 15:00 05/20/20 14:59 04/27/20 09:26 Clonidine HCl (Catapres Tab) 0.1 mg Q4H PRN ORAL BP over 160 systolic 04/22/20 12:45 07/21/20 12:44 04/25/20 20:36 Docusate Sodium (Colace) 100 mg THREE TIMES A DAY ORAL 04/20/20 18:00 05/20/20 17:59 04/27/20 18:03 Metoclopramide HCl (Reglan) 5 mg THREE TIMES A DAY ORAL 04/22/20 13:00 05/22/20 12:59 04/27/20 18:03 Metoprolol Tartrate (Lopressor) 25 mg Q12HR ORAL 04/24/20 21:00 07/23/20 20:59 04/27/20 20:30 Ondansetron HCl (Zofran) 4 mg Q6H PRN IVP Nausea & Vomiting 04/20/20 15:00 05/20/20 14:59 Pantoprazole (Protonix) 40 mg EVERY 12 HOURS ORAL 04/20/20 21:00 05/20/20 20:59 04/27/20 20:29 Sevelamer Carbonate (Renvela) 1,600 mg THREE TIMES A DAY ORAL 04/24/20 14:45 07/23/20 14:44 04/27/20 18:03 Laboratory Tests 04/27/20 10:00: White Blood Count 8.5, Red Blood Count 3.15L, Hemoglobin 10.2L, Hematocrit 30.5L , Mean Corpuscular Volume 97, Mean Corpuscular Hemoglobin 32.4H, Mean Corpuscular Hemoglobin Concent 33.5, Red Cell Distribution Width 12.5, Platelet Count 247, Mean Platelet Volume 5.7L, Neutrophils (%) (Auto) 69.5, Lymphocytes (%) (Auto) 16.7L, Monocytes (%) (Auto) 10.7H, Eosinophils (%) (Auto) 2.1, Basophils (%) (Auto) 1.1, Sodium Level 140, Potassium Level 4.9, Chloride Level 101, Carbon Dioxide Level 23, Anion Gap 16H, Blood Urea Nitrogen 94H, Creatinine 14.0H, Estimat Glomerular Filtration Rate 3.7, Glucose Level 136H, Calcium Level 8.4L, Phosphorus Level 6.3H, Magnesium Level 2.5H, Total Bilirubin 0.4, Direct Bilirubin 0.2, Aspartate Amino Transf (AST/SGOT) 17, Alanine Aminotransferase (ALT/SGPT) 27, Alkaline Phosphatase 84, Total Protein 7.3, Albumin 4.0 Height (Feet): 5 Height (Inches): 6.00 Weight (Pounds): 185 General Appearance: no apparent distress Cardiovascular: normal rate Respiratory/Chest: decreased breath sounds Abdomen: soft Braulio Humphrey MD Apr 28, 2020 09:26
[2020-04-28] MEDS ORDERED: PANTOPRAZOLE SO40 MG ORAL (10:40)
[2020-04-28] MEDS ORDERED: RENVELA800 MG ORAL (10:40)
[2020-04-28] MEDS ORDERED: REGLAN10 MG ORAL (10:40)
--- NOTE | 2020-04-28 12:39 | NUR ---
Patient discharged to home. Discharged to home. Discharge instructions explained in Khmer to patient by YANDY Slade. Discussed discharge instructions, follow up, and home meds. New prescriptions sent by erx to pharmacy on file verified with patient pharmacy. patient verbalized understanding. patient transported via wheelchair to taxi.
--- NOTE | 2020-04-29 11:47 | Discharge Summary ---
Discharge Summary Discharge Summary _ Date of admission: 04/20/2020 Date of discharge: 04/28/[address] Son History of Present Illness and Brief Hospital Course Mr. Fish is a 54-year-old male with past medical history of ESRD, and hypertension, who was brought in by EMS for evaluation of dizziness, body aches, and chills. The initial EKG showed normal sinus rhythm with ST depression in the inferior leads. Patient was given aspirin. Chest x-ray showed right cardiomegaly with no definite infiltrate. Patient tested negative for COVID-19 via rapid test. Patient was admitted to the hospital for further management. Two troponins were negative. EKG showed no ischemic changes. 2D echocardiogram revealed ejection fraction of 50-55%. His atypical chest pain was likely due to volume overload secondary to his underlying ESRD. Urinalysis was consistent with UTI. Patient had leukocytosis but was afebrile. Patient was given a short course of antibiotics. Follow-up urine culture was negative for growth. Patient was dialyzed according to his dialysis schedule. Patient was medically stable for discharge and was discharged home on 04/28/2020. Consultants: Cardiology Dr. Slaughter Infectious disease Dr. Junior Nephrology Dr. Oliver Hematology oncology Dr. Ward Discharge Condition Improved and stable Discharge Activity As tolerated Discharge Diet Renal diet Final diagnoses Hypertension Atypical chest pain ESRD, on hemodialysis Tachycardia Generalized weakness UTI Sepsis Leukocytosis Anemia I have been assigned to dictate discharge summary for this account. I was not involved in the patient's management Jose Luis Haley Apr 29, 2020 11:47
== END 2020-04-28 12:30 | disposition home or self-care (01) | DRG 720 ==
LOC: EDBD 09:22 → EMR 09:34 → 2E 11:29 → EDBEDREQ 12:21
PROC: 5A1D70Z Performance of Urinary Filtration, Intermittent, Less than 6 Hours Per Day (ICD-10-PCS; principal; 2020-04-27)
DX: A41.9 Sepsis, unspecified organism (principal); N39.0 Urinary tract infection, site not specified; I12.0 Hypertensive chronic kidney disease with stage 5 chronic kidney disease or end stage renal disease; N18.6 End stage renal disease; E87.1 Hypo-osmolality and hyponatremia; D64.9 Anemia, unspecified; Z99.2 Dependence on renal dialysis; E11.21 Type 2 diabetes mellitus with diabetic nephropathy; R07.89 Other chest pain; E87.79 Other fluid overload
CPT/HCPCS: 36415; 71045; 80048; 80053; 80061; 80076; 80307; 81003; 82607; 82728; 82746; 82962; 82977; 83036; 83540; 83550; 83605; 83615; 83735; 83880; 84100; 84443; 84484; 84550; 85025; 85610; 85730; 86140; 86706; 87081; 87086; 93005; 93306; 96365; 96375; 99285; J2405